=== PATIENT | female | born 1975 | race Two or more races ===

== ENCOUNTER 2018-06-01 02:27 | Observation (INO) | payer OTHER ==
[~2018-06-01] VITALS: Ht 154.9 cm; Wt 62.7 kg
[2018-06-01 02:53] LABS: BASOPHILS # (AUTO) 0.1 X10'3 (0-0.2); BASOPHILS % (AUTO) 0.7 % (0-1); EOSINOPHILS # (AUTO) 0.8 X10'3 (0-0.9); HEMATOCRIT 34.7 % (35.0-45.0); HEMOGLOBIN 11.2 g/dl (12.0-16.0); LYMPHOCYTES # (AUTO) 3.8 X10'3 (1.1-4.8); LYMPHOCYTES % (AUTO) 47.8 % (21-51); MEAN CORPUSCULAR HGB CONC 32.4 % (33.0-36.5); MEAN CORPUSCULAR VOLUME 74.1 FL (78-98); MONOCYTES # (AUTO) 0.6 X10'3 (0-0.9); NEUTROPHILS # (AUTO) 2.7 X10'3 (1.8-7.7); NEUTROPHILS % (AUTO) 34.5 % (42-75); PLATELET COUNT 278 X10'3 (140-440); RED BLOOD COUNT 4.68 X10'6 (4.20-5.60); WHITE BLOOD COUNT 7.9 X10'3 (4.5-11.0)
[2018-06-01 03:08] LABS: ALANINE AMINOTRANSFERASE 21 U/L (12-78); ALBUMIN 3.7 G/DL (3.4-5.0); ALKALINE PHOSPHATASE 126 IU/L (46-116); ANION GAP 13 (8-16); ASPARTATE AMINO TRANSFERASE 14 U/L (10-37); BILIRUBIN,TOTAL 0.2 MG/DL (0.1-1.0); BLOOD UREA NITROGEN 13 MG/DL (7-18); BUN/CREATININE RATIO 15.9 (6.6-38.0); CALCIUM 8.6 MG/DL (8.5-10.1); CHLORIDE 104 MMOL/L (99-107); CREATININE 0.82 MG/DL (0.40-0.90); GLUCOSE 98 MG/DL (70-104); POTASSIUM 3.2 MMOL/L (3.5-5.1); SODIUM 140 MMOL/L (135-145); TOTAL CARBON DIOXIDE 22.6 MMOL/L (24-32); TOTAL PROTEIN 7.4 G/DL (6.4-8.2); eGFR 76 ML/MIN
[2018-06-01 03:15] LABS: MAGNESIUM 1.9 MG/DL (1.5-2.4)
[2018-06-01 03:22] LABS: D-DIMER < 0.19 MG/L FEU (0-0.50)
[2018-06-01] MEDS ORDERED: potassium 10mEq/100ml NS w/LIDOcaine (10mg/bag) IV ONE (03:30)
[2018-06-01] MEDS ORDERED: LISI10TA4 PO (05:10)
[2018-06-01] MEDS ORDERED: magnesium hydroxide 30ml (MOM) UD suspension PO PRN (05:55)
[2018-06-01] MEDS ORDERED: ondansetron/PF 4mg/2ml inj IV PRN (05:55)
[2018-06-01] MEDS ORDERED: potassium Cl 40MEQ/NS 500ml 500 ML IV PRN ×2 (05:55)
[2018-06-01] MEDS ORDERED: morphine 4 MG/ML inj SYRINge IV PRN ×2 (05:55)
[2018-06-01] MEDS ORDERED: potassium Cl 20 mEq SR tablet PO PRN (05:55)
[2018-06-01] MEDS ORDERED: acetaminophen 325mg tablet PO PRN (05:55)
[2018-06-01] MEDS ORDERED: enalaprilat dihydrate 2.5mg/2ml vial IV PRN (05:55)
[2018-06-01] MEDS ORDERED: magnesium 4gm in 100ml NS 100 ML IV PRN (05:55)
[2018-06-01] MEDS ORDERED: magnesium 2GM in 50ml NS 50 ML IV PRN (05:55)
[2018-06-01] MEDS ORDERED: LORazepam 0.5 MG tablet PO PRN (06:05)
[2018-06-01] MEDS ORDERED: LORazepam 1 MG tablet PO STA (06:05)
--- NOTE | 2018-06-01 06:35 | NUR ---
CALLED PHARMACY TO HAVE ATIVAN ADJUSTED TO 0.5 MG TAB SO IT CAN BE PULLED FROM ED OMNICELL
[2018-06-01] MEDS ORDERED: LORazepam 0.5 MG tablet PO STA (06:38)
[2018-06-01 06:57] LABS: CHOL/HDL RATIO 3.3 (0.00-4.99); CHOLESTEROL 149 MG/DL (0-200); HDL CHOLESTEROL 45 MG/DL (35-60); LDL CHOLESTEROL 90 MG/DL (50-100); TRIGLYCERIDES 71 MG/DL (20-135)
--- NOTE | 2018-06-01 07:10 | NUR ---
Patient in room ED 6. I have received report from Sonia LEE and had the opportunity to ask questions and assume patient care.
[2018-06-01 07:20] VITALS: BP 143/83
--- NOTE | 2018-06-01 07:20 | NUR ---
Patient arrived to the unit accompanied by ED personnel. Patient ambulated to hospital bed safely, telemetry monitoring initiated, vital signs obtained, 2 RN skin check completed, patient's belongings placed in closet, and patient oriented to room and call light. No c/o of chest pain at this time, no signs of distress, no requests at this time. Will continue to monitor patient.
--- NOTE | 2018-06-01 07:34 | NUR ---
Page sent to Dr. Rincon: PAGER ID: [phone] MESSAGE: [phone] Teddy Mcintosh: Troponin now . Nohelia Poe FINAL ASSEMBLER [employer]AT notified. Thanks, Lily [phone]
[2018-06-01] MEDS: K and/or MAG REPLACEMENT MC SCH (08:00)
[2018-06-01] MEDS: enoxaparin 40mg/0.4ml syringe SQ SCH (09:13)
[2018-06-01] MEDS: potassium Cl 20 mEq SR tablet PO PRN ×3 (09:15→19:57)
[2018-06-01] MEDS: lisinopril 10 MG tablet PO SCH (09:15)
[2018-06-01 15:00] VITALS: BP 136/92
[2018-06-01] MEDS ORDERED: metoprolol tartrate 1mg/ml inj IV PRN (17:20)
[2018-06-01] MEDS ORDERED: nitroGLYCERIN 0.4mg SUBLingual tab SL PRN (17:20)
[2018-06-01] MEDS ORDERED: regadenoson 0.4mg/5ml syringe IV ONE (17:20)
[2018-06-01] MEDS ORDERED: aminophylline 250mg/10ml inj. IV PRN (17:20)
--- NOTE | 2018-06-01 18:16 | NUR ---
Problems reprioritized. Patient report given, questions answered & plan of care reviewed with Sepideh LEE. Transfered to [facility] at 1815 by wheelchair. Evangelista at bedside.
--- NOTE | 2018-06-01 18:23 | NUR ---
Orientee documentation: I have reviewed and agree with all interventions, assessments performed and documented by Betzaida LEE. Orientee Medication Administration: For this medication-pass time frame, all medication were reviewed, dispensed, administered and documented per hospital policy by Betzaida LEE.
[2018-06-01 19:00] VITALS: BP 130/90
[2018-06-01 23:00] VITALS: BP 131/82
[2018-06-02] VITALS (12 sets, daily range): BP systolic 126–163; BP diastolic 76–92
[2018-06-02 05:42] LABS: BASOPHILS # (AUTO) 0.1 X10'3 (0-0.2); BASOPHILS % (AUTO) 0.9 % (0-1); EOSINOPHILS # (AUTO) 0.6 X10'3 (0-0.9); HEMATOCRIT 33.1 % (35.0-45.0); HEMOGLOBIN 10.6 g/dl (12.0-16.0); LYMPHOCYTES # (AUTO) 2.9 X10'3 (1.1-4.8); LYMPHOCYTES % (AUTO) 45.3 % (21-51); MEAN CORPUSCULAR VOLUME 75.1 FL (78-98); MEAN PLATELET VOLUME 9.5 FL (7.4-10.4); MONOCYTES # (AUTO) 0.5 X10'3 (0-0.9); MONOCYTES % (AUTO) 7.9 % (2-12); NEUTROPHILS # (AUTO) 2.4 X10'3 (1.8-7.7); NEUTROPHILS % (AUTO) 36.9 % (42-75); PLATELET COUNT 230 X10'3 (140-440); WHITE BLOOD COUNT 6.4 X10'3 (4.5-11.0)
[2018-06-02 06:08] LABS: ALANINE AMINOTRANSFERASE 18 U/L (12-78); ALBUMIN 3.3 G/DL (3.4-5.0); ALKALINE PHOSPHATASE 107 IU/L (46-116); ANION GAP 8 (8-16); ASPARTATE AMINO TRANSFERASE 13 U/L (10-37); BILIRUBIN,TOTAL 0.2 MG/DL (0.1-1.0); BLOOD UREA NITROGEN 9 MG/DL (7-18); BUN/CREATININE RATIO 12.3 (6.6-38.0); CALCIUM 8.8 MG/DL (8.5-10.1); CHLORIDE 108 MMOL/L (99-107); CREATININE 0.73 MG/DL (0.40-0.90); GLUCOSE 82 MG/DL (70-104); MAGNESIUM 1.8 MG/DL (1.5-2.4); POTASSIUM 4.1 MMOL/L (3.5-5.1); SODIUM 142 MMOL/L (135-145); TOTAL CARBON DIOXIDE 25.6 MMOL/L (24-32); TOTAL PROTEIN 6.7 G/DL (6.4-8.2); eGFR 87 ML/MIN
--- NOTE | 2018-06-02 06:42 | NUR ---
Patient in room MED 314. I have received report from JESUS SPENCE and had the opportunity to ask questions and assume patient care.
[2018-06-02 07:03] LABS: CLARITY,URINE CLEAR (Clear); COLOR,URINE YELLOW (Yellow); GLUCOSE, URINE NEGATIVE (Neg); KETONES,URINE TRACE mg/dl (Neg); LEUKOCYTE ESTERASE ,URINE NEGATIVE (Neg); NITRITES, URINE NEGATIVE (Neg); OCCULT BLOOD,URINE NEGATIVE (Neg); PH,URINE 5.5 (4.8-8.0); PROTEIN,URINE NEGATIVE (Neg); UROBILINOGEN,URINE 0.2 E.U/dL (0.2-1.0)
[2018-06-02 07:09] LABS: UA COLLECTION TYPE NON-SPECIFIED
[2018-06-02] MEDS: K and/or MAG REPLACEMENT MC SCH (08:00)
[2018-06-02] MEDS: enoxaparin 40mg/0.4ml syringe SQ SCH (08:00)
--- NOTE | 2018-06-02 08:30 | NUR ---
PATIENT OFF FLOOR TO [facility]
[2018-06-02] MEDS ORDERED: regadenoson 0.4mg/5ml syringe IV ONE (09:00)
[2018-06-02] MEDS ORDERED: aminophylline inj. 10 ML IV ONE (09:00)
[2018-06-02 09:34] LABS: URINE HCG NEGATIVE (NEG)
--- NOTE | 2018-06-02 10:15 | NUR ---
PATIENT BACK FROM [facility], DENIES PAIN OR OTHER COMPLAINTS AT THIS TIME. WILL CONTINUE TO MONITOR.
[2018-06-02] MEDS: lisinopril 10 MG tablet PO SCH (10:28)
[2018-06-02 12:36] LABS: % IRON SATURATION 5 % (11-46); IRON 25 UG/DL (49-151); TOTAL IRON BINDING CAPACITY 482 UG/DL (259-388)
[2018-06-02 12:43] LABS: FERRITIN 4 NG/ML (8-252)
[2018-06-02] MEDS ORDERED: FERR325T28 PO (13:56)
[2018-06-02] MEDS ORDERED: PROP10TA10 PO (13:56)
[2018-06-02] MEDS ORDERED: ASCO500C15 PO (13:56)
--- NOTE | 2018-06-02 14:32 | NUR ---
PATIENT DISCHARGED HOME IN STABLE CONDITION. AND GRANDMA AT BEDSIDE. VSS, PIV REMOVED TIP INTACT, ALL BELONGINGS GIVEN TO PATIENT, DISCHARGE INSTRUCTIONS GIVEN TO PATIENT AND . ALL QUESTIONS AND CONCERNS ADDRESSED AT THIS TIME. PATIENT TRANSFERRED TO W/C, PCT BROUGHT PATIENT TO PRIVATE VEHICLE.
== END 2018-06-02 14:30 | disposition home or self-care (01) ==
LOC: ER 02:28 → ED HOLD 05:53 → PCU 3S 07:17 → MED 3N 19:06
PROVIDERS: ADMIT Family Medicine; ATTEND Family Medicine
DX: I16.0 Hypertensive urgency (principal); E87.6 Hypokalemia; R00.0 Tachycardia, unspecified; N92.0 Excessive and frequent menstruation with regular cycle; I10 Essential (primary) hypertension; I24.9 Acute ischemic heart disease, unspecified; F41.9 Anxiety disorder, unspecified; Z86.718 Personal history of other venous thrombosis and embolism
CPT/HCPCS: 36415; 71045; 78452; 80053; 80061; 81003; 81025; 82728; 83540; 83550; 83735; 83880; 84443; 84484; 85025; 85379; 93005; 93017; 93306; 96365; 96372; 96375; 99284; A9500; G0378; J0280; J2270; J3480; J1650

== ENCOUNTER 2018-07-13 12:20 | Outpatient (CLI) | payer OTHER ==
[~2018-07-13 12:20] MED LIST: ASCO500C15 PO; PROP10TA10 PO
[2018-07-13 13:17] LABS: CLARITY,URINE CLEAR (Clear); COLOR,URINE YELLOW (Yellow); GLUCOSE, URINE NEGATIVE (Neg); KETONES,URINE NEGATIVE (Neg); LEUKOCYTE ESTERASE ,URINE NEGATIVE (Neg); NITRITES, URINE NEGATIVE (Neg); OCCULT BLOOD,URINE SMALL (Neg); PH,URINE 5.5 (4.8-8.0); PROTEIN,URINE NEGATIVE (Neg); UROBILINOGEN,URINE 0.2 E.U/dL (0.2-1.0)
[2018-07-13 13:23] LABS: UA COLLECTION TYPE CLN CATCH MIDSTREAM
[2018-07-13 13:29] LABS: BASOPHILS # (AUTO) 0.1 X10'3 (0-0.2); EOSINOPHILS # (AUTO) 0.5 X10'3 (0-0.9); EOSINOPHILS % (AUTO) 6.8 % (0-6); HEMATOCRIT 37.5 % (35.0-45.0); HEMOGLOBIN 12.3 g/dl (12.0-16.0); LYMPHOCYTES # (AUTO) 2.2 X10'3 (1.1-4.8); LYMPHOCYTES % (AUTO) 30.5 % (21-51); MEAN CORPUSCULAR HEMOGLOBIN 26.7 PG (27.0-31.0); MEAN CORPUSCULAR HGB CONC 32.7 g/dL (33.0-36.5); MEAN CORPUSCULAR VOLUME 81.6 FL (78-98); MEAN PLATELET VOLUME 9.2 FL (7.4-10.4); MONOCYTES # (AUTO) 0.5 X10'3 (0-0.9); MONOCYTES % (AUTO) 7.4 % (2-12); NEUTROPHILS # (AUTO) 3.8 X10'3 (1.8-7.7); NEUTROPHILS % (AUTO) 54.3 % (42-75); PLATELET COUNT 227 X10'3 (140-440); RED CELL DISTRIBUTION WIDTH 26.5 % (11.5-14.5); WHITE BLOOD COUNT 7.1 X10'3 (4.5-11.0)
[2018-07-13 13:46] LABS: ALANINE AMINOTRANSFERASE 30 U/L (12-78); ALBUMIN 3.5 G/DL (3.4-5.0); ALKALINE PHOSPHATASE 113 IU/L (46-116); ANION GAP 5 (8-16); ASPARTATE AMINO TRANSFERASE 12 U/L (10-37); BILIRUBIN,TOTAL 0.2 MG/DL (0.1-1.0); BLOOD UREA NITROGEN 15 MG/DL (7-18); CALCIUM 8.8 MG/DL (8.5-10.1); CHLORIDE 108 MMOL/L (99-107); CHOL/HDL RATIO 3.9 (0.00-4.99); CHOLESTEROL 153 MG/DL (0-200); CREATININE 0.75 MG/DL (0.40-0.90); GLUCOSE 99 MG/DL (70-104); HDL CHOLESTEROL 39 MG/DL (35-60); LDL CHOLESTEROL 97 MG/DL (50-100); POTASSIUM 3.7 MMOL/L (3.5-5.1); SODIUM 141 MMOL/L (135-145); TOTAL CARBON DIOXIDE 27.8 MMOL/L (24-32); TOTAL PROTEIN 7.1 G/DL (6.4-8.2); TRIGLYCERIDES 153 MG/DL (20-135); eGFR 84 ML/MIN
[2018-07-13 14:00] LABS: SQUAMOUS EPITHELIAL CELL,UR MANY /LPF (FEW)
[2018-07-13 14:01] LABS: BACTERIA,URINE 1+ /HPF (Neg); RBC,URINE 0-2 /HPF (0-2)
[2018-07-13 14:02] LABS: WBC,URINE 0-4 /HPF (0-4)
[2018-07-13 14:03] LABS: ANISOCYTOSIS 3+; PLATELET ESTIMATE NORMAL
[2018-07-13 14:04] LABS: MICROCYTOSIS 2+
[2018-07-13 14:11] LABS: RHEUM FACTOR QUAL REFLEX TITER NEGATIVE (Neg)
[2018-07-13 15:17] LABS: URIC ACID CRYSTALS FEW /HPF (NEGATIVE)
== END 2018-07-13 23:59 | disposition home or self-care (01) ==
LOC: VAS 12:20
PROVIDERS: ATTEND Family Medicine
DX: Z00.00 Encounter for general adult medical examination without abnormal findings (principal); I10 Essential (primary) hypertension
CPT/HCPCS: 36415; 80053; 80061; 81001; 84439; 84443; 84550; 85025; 85651; 86038; 86430; 93975

== ENCOUNTER 2018-12-26 09:19 | Outpatient (CLI) | payer OTHER ==
[2018-12-26 09:54] LABS: CLARITY,URINE SLIGHTLY CLOUDY (Clear); COLOR,URINE YELLOW (Yellow); GLUCOSE, URINE NEGATIVE (Neg); KETONES,URINE NEGATIVE (Neg); LEUKOCYTE ESTERASE ,URINE TRACE (Neg); NITRITES, URINE NEGATIVE (Neg); OCCULT BLOOD,URINE NEGATIVE (Neg); PH,URINE 5.5 (4.8-8.0); PROTEIN,URINE NEGATIVE (Neg); UROBILINOGEN,URINE 0.2 E.U/dL (0.2-1.0)
[2018-12-26 09:57] LABS: UA COLLECTION TYPE CLN CATCH MIDSTREAM
[2018-12-26 09:58] LABS: BASOPHILS # (AUTO) 0.1 X10'3 (0-0.2); BASOPHILS % (AUTO) 0.9 % (0-1); EOSINOPHILS # (AUTO) 0.5 X10'3 (0-0.9); EOSINOPHILS % (AUTO) 7.6 % (0-6); HEMATOCRIT 32.8 % (35.0-45.0); HEMOGLOBIN 10.6 g/dl (12.0-16.0); LYMPHOCYTES # (AUTO) 2.4 X10'3 (1.1-4.8); LYMPHOCYTES % (AUTO) 36.2 % (21-51); MEAN CORPUSCULAR HEMOGLOBIN 24.8 PG (27.0-31.0); MEAN CORPUSCULAR HGB CONC 32.3 g/dL (33.0-36.5); MEAN CORPUSCULAR VOLUME 76.6 FL (78-98); MEAN PLATELET VOLUME 7.8 FL (7.4-10.4); MONOCYTES # (AUTO) 0.4 X10'3 (0-0.9); MONOCYTES % (AUTO) 6.4 % (2-12); NEUTROPHILS # (AUTO) 3.3 X10'3 (1.8-7.7); NEUTROPHILS % (AUTO) 48.9 % (42-75); PLATELET COUNT 301 X10'3 (140-440); RED BLOOD COUNT 4.28 X10'6 (4.20-5.60); RED CELL DISTRIBUTION WIDTH 16.9 % (11.5-14.5); WHITE BLOOD COUNT 6.7 X10'3 (4.5-11.0)
[2018-12-26 10:03] LABS: SQUAMOUS EPITHELIAL CELL,UR MANY /LPF (FEW)
[2018-12-26 10:04] LABS: BACTERIA,URINE FEW /HPF (Neg); RBC,URINE 0-2 /HPF (0-2); WBC,URINE 20-30 /HPF (0-4)
[2018-12-26 10:17] LABS: ALANINE AMINOTRANSFERASE 15 U/L (12-78); ALBUMIN 3.6 G/DL (3.4-5.0); ALBUMIN/GLOBULIN RATIO 0.9 (1.1-1.5); ALKALINE PHOSPHATASE 97 IU/L (46-116); ANION GAP 11 (8-16); ASPARTATE AMINO TRANSFERASE 11 U/L (10-37); BILIRUBIN,TOTAL 0.2 MG/DL (0.1-1.0); BLOOD UREA NITROGEN 16 MG/DL (7-18); BUN/CREATININE RATIO 22.5 (6.6-38.0); CALCIUM 8.2 MG/DL (8.5-10.1); CHLORIDE 108 MMOL/L (99-107); CHOL/HDL RATIO 3.9 (0.00-4.99); CHOLESTEROL 202 MG/DL (0-200); CREATININE 0.71 MG/DL (0.40-0.90); GLUCOSE 83 MG/DL (70-104); HDL CHOLESTEROL 52 MG/DL (35-60); LDL CHOLESTEROL 131 MG/DL (50-100); SODIUM 142 MMOL/L (135-145); TOTAL CARBON DIOXIDE 23.4 MMOL/L (24-32); TOTAL PROTEIN 7.7 G/DL (6.4-8.2); TRIGLYCERIDES 97 MG/DL (20-135); eGFR 89 ML/MIN
== END 2018-12-26 23:59 | disposition home or self-care (01) ==
LOC: LAB 09:19
PROVIDERS: ATTEND Family Medicine
DX: Z00.00 Encounter for general adult medical examination without abnormal findings (principal); I10 Essential (primary) hypertension
CPT/HCPCS: 36415; 80053; 80061; 81001; 82607; 82746; 84439; 84443; 85025

== ENCOUNTER 2019-01-30 21:19 | Emergency (ER) | payer OTHER ==
[~2019-01-30] VITALS: Ht 154.9 cm; Wt 66.0 kg
[2019-01-30 21:57] LABS: BASOPHILS # (AUTO) 0.1 X10'3 (0-0.2); BASOPHILS % (AUTO) 1.3 % (0-1); EOSINOPHILS # (AUTO) 0.5 X10'3 (0-0.9); EOSINOPHILS % (AUTO) 7.4 % (0-6); HEMATOCRIT 39.3 % (35.0-45.0); LYMPHOCYTES # (AUTO) 2.5 X10'3 (1.1-4.8); LYMPHOCYTES % (AUTO) 34.6 % (21-51); MEAN CORPUSCULAR HEMOGLOBIN 28.1 PG (27.0-31.0); MEAN CORPUSCULAR HGB CONC 33.2 g/dL (33.0-36.5); MEAN CORPUSCULAR VOLUME 84.4 FL (78-98); MEAN PLATELET VOLUME 8.2 FL (7.4-10.4); MONOCYTES # (AUTO) 0.5 X10'3 (0-0.9); MONOCYTES % (AUTO) 7.3 % (2-12); NEUTROPHILS # (AUTO) 3.6 X10'3 (1.8-7.7); NEUTROPHILS % (AUTO) 49.4 % (42-75); PLATELET COUNT 244 X10'3 (140-440); RED BLOOD COUNT 4.65 X10'6 (4.20-5.60); RED CELL DISTRIBUTION WIDTH 24.7 % (11.5-14.5); WHITE BLOOD COUNT 7.3 X10'3 (4.5-11.0)
[2019-01-30 22:09] LABS: PARTIAL THROMBOPLASTIN TIME 28 SECONDS (22-32)
[2019-01-30 22:13] LABS: ALANINE AMINOTRANSFERASE 24 U/L (12-78); ALBUMIN 3.7 G/DL (3.4-5.0); ALBUMIN/GLOBULIN RATIO 0.9 (1.1-1.5); ALKALINE PHOSPHATASE 82 IU/L (46-116); ANION GAP 10 (8-16); ASPARTATE AMINO TRANSFERASE 10 U/L (10-37); BILIRUBIN,TOTAL 0.2 MG/DL (0.1-1.0); BLOOD UREA NITROGEN 17 MG/DL (7-18); BUN/CREATININE RATIO 19.5 (6.6-38.0); CALCIUM 8.8 MG/DL (8.5-10.1); CHLORIDE 106 MMOL/L (99-107); CREATININE 0.87 MG/DL (0.40-0.90); GLUCOSE 107 MG/DL (70-104); POTASSIUM 3.8 MMOL/L (3.5-5.1); SODIUM 141 MMOL/L (135-145); TOTAL CARBON DIOXIDE 25.1 MMOL/L (24-32); TOTAL PROTEIN 7.6 G/DL (6.4-8.2); eGFR 71 ML/MIN
[2019-01-30] MEDS ORDERED: LIDOcaine Viscous 15ml cup MM STA (22:13)
[2019-01-30] MEDS ORDERED: aspirin 81mg tab.chew PO ONE (22:15)
[2019-01-30] MEDS ORDERED: famotidine 20mg tablet PO ONE (22:15)
[2019-01-30 22:27] LABS: ANISOCYTOSIS 3+; PLATELET ESTIMATE NORMAL
[2019-01-30 23:23] VITALS: BP 129/86
== END 2019-01-30 23:20 | disposition home or self-care (01) ==
LOC: ER 21:20
DX: R10.12 Left upper quadrant pain (principal); I10 Essential (primary) hypertension
CPT/HCPCS: 36415; 71045; 80053; 84484; 85025; 85610; 85730; 93005; 99284

== ENCOUNTER 2019-02-03 11:56 | Outpatient (CLI) | payer OTHER | END 2019-02-03 23:59 | disposition home or self-care (01) | LOC: LAB 11:56 | PROVIDERS: ATTEND Family Medicine | DX: I10 Essential (primary) hypertension (principal) | CPT/HCPCS: 36415; 83835 ==

== ENCOUNTER 2019-02-10 13:31 | Outpatient (CLI) | payer OTHER ==
[2019-02-11] MEDS ORDERED: SUCR1TAB34 PO (04:01)
[2019-02-11] MEDS ORDERED: ONDA4TAB6 PO (04:01)
[2019-02-11] MEDS ORDERED: FAMO20TA44 PO (04:01)
[2019-02-11] MEDS ORDERED: OMEP20CA11 PO (04:01)
== END 2019-02-10 23:59 | disposition home or self-care (01) ==
LOC: RAD 13:31
PROVIDERS: ATTEND Family Medicine
DX: R10.11 Right upper quadrant pain (principal); I10 Essential (primary) hypertension
CPT/HCPCS: 76700

== ENCOUNTER 2019-02-11 02:41 | Emergency (ER) | payer OTHER ==
[~2019-02-11] VITALS: Ht 154.9 cm; Wt 65.0 kg
[2019-02-11] MEDS ORDERED: mag hydrox/Alum hydrox/simeth 30ml oral suspension PO ONE (02:50)
[2019-02-11] MEDS ORDERED: LIDOcaine Viscous 15ml cup MM PRN (02:50)
[2019-02-11] MEDS ORDERED: LORazepam 1 MG tablet PO ONE (02:50)
[2019-02-11] MEDS ORDERED: sucralfate 1gm/10ml UD suspension PO ONE (02:50)
[2019-02-11] MEDS ORDERED: sucralfate 1gm/10ml UD suspension PO SCH (02:50)
[2019-02-11] MEDS ORDERED: famotidine/PF 10 mg/ml inj IV ONE (03:05)
[2019-02-11] MEDS ORDERED: normal saline 1000ML IV soln IVB ONE (03:05)
[2019-02-11] MEDS ORDERED: pantoprazole 40 MG vial IV ONE (03:05)
[2019-02-11] MEDS ORDERED: ondansetron/PF 4mg/2ml inj IV ONE (03:05)
[2019-02-11 04:00] LABS: BASOPHILS # (AUTO) 0.1 X10'3 (0-0.2); BASOPHILS % (AUTO) 1.1 % (0-1); EOSINOPHILS # (AUTO) 0.4 X10'3 (0-0.9); EOSINOPHILS % (AUTO) 6.5 % (0-6); HEMATOCRIT 39.1 % (35.0-45.0); HEMOGLOBIN 13.1 g/dl (12.0-16.0); LYMPHOCYTES # (AUTO) 2.5 X10'3 (1.1-4.8); LYMPHOCYTES % (AUTO) 37.5 % (21-51); MEAN CORPUSCULAR HEMOGLOBIN 28.8 PG (27.0-31.0); MEAN CORPUSCULAR HGB CONC 33.5 g/dL (33.0-36.5); MEAN CORPUSCULAR VOLUME 85.8 FL (78-98); MEAN PLATELET VOLUME 8.5 FL (7.4-10.4); MONOCYTES # (AUTO) 0.5 X10'3 (0-0.9); MONOCYTES % (AUTO) 7.3 % (2-12); NEUTROPHILS # (AUTO) 3.2 X10'3 (1.8-7.7); NEUTROPHILS % (AUTO) 47.6 % (42-75); PLATELET COUNT 260 X10'3 (140-440); RED BLOOD COUNT 4.56 X10'6 (4.20-5.60); WHITE BLOOD COUNT 6.7 X10'3 (4.5-11.0)
[2019-02-11] MEDS ORDERED: ONDA4TAB6 PO (04:01)
[2019-02-11] MEDS ORDERED: SUCR1TAB34 PO (04:01)
[2019-02-11] MEDS ORDERED: FAMO20TA44 PO (04:01)
[2019-02-11] MEDS ORDERED: OMEP20CA11 PO (04:01)
--- NOTE | 2019-02-11 04:04 | NUR ---
PT DENIES CP.
[2019-02-11 04:05] LABS: ALANINE AMINOTRANSFERASE 24 U/L (12-78); ALBUMIN 3.8 G/DL (3.4-5.0); ALBUMIN/GLOBULIN RATIO 0.9 (1.1-1.5); ALKALINE PHOSPHATASE 84 IU/L (46-116); ANION GAP 8 (8-16); ASPARTATE AMINO TRANSFERASE 13 U/L (10-37); BILIRUBIN,TOTAL 0.3 MG/DL (0.1-1.0); BLOOD UREA NITROGEN 13 MG/DL (7-18); BUN/CREATININE RATIO 17.6 (6.6-38.0); CALCIUM 9.2 MG/DL (8.5-10.1); CHLORIDE 106 MMOL/L (99-107); CREATININE 0.74 MG/DL (0.40-0.90); GLUCOSE 92 MG/DL (70-104); LIPASE 127 U/L (73-393); POTASSIUM 3.4 MMOL/L (3.5-5.1); SODIUM 141 MMOL/L (135-145); TOTAL CARBON DIOXIDE 27.4 MMOL/L (24-32); TOTAL PROTEIN 7.9 G/DL (6.4-8.2); eGFR 85 ML/MIN
--- NOTE | 2019-02-11 04:28 | NUR ---
PT RESTING COMFORTABLY, DENIES ANY PAIN.
[2019-02-11 04:45] VITALS: BP 126/79
[2019-02-11 07:38] LABS: ANISOCYTOSIS 3+; PLATELET ESTIMATE NORMAL; STOMATOCYTES FEW
== END 2019-02-11 04:43 | disposition home or self-care (01) ==
LOC: ER 02:42
DX: K21.9 Gastro-esophageal reflux disease without esophagitis (principal); I10 Essential (primary) hypertension; Z86.2 Personal history of diseases of the blood and blood-forming organs and certain disorders involving the immune mechanism; Z79.899 Other long term (current) drug therapy
CPT/HCPCS: 36415; 74176; 80053; 83605; 83690; 84484; 85025; 93005; 96374; 96375; 99284; C9113; J2405; J3490; J7030

== ENCOUNTER 2019-02-14 10:37 | Outpatient (CLI) | payer OTHER ==
[~2019-02-14 10:37] MED LIST changes: +FAMO20TA44 PO; +OMEP20CA11 PO; +ONDA4TAB6 PO; +SUCR1TAB34 PO
[2019-02-14] MEDS ORDERED: NORMAL SALINE IV ONE (12:05)
[2019-02-14] MEDS ORDERED: SINCALIDE IV ONE (12:05)
[2019-02-15] MEDS ORDERED: CEFOXITIN IV ONE ×2 (10:55→11:50)
[2019-02-15] MEDS ORDERED: NS IV ONE ×2 (10:55→11:50)
[2019-02-15] MEDS ORDERED: CARV6.253 PO (12:49)
[2019-02-15] MEDS ORDERED: PANT40TA4 PO (12:49)
[2019-02-15] MEDS ORDERED: LISI-604 PO (12:49)
[2019-02-15] MEDS ORDERED: CHOL500049 PO (12:49)
== END 2019-02-14 23:59 | disposition home or self-care (01) ==
LOC: RAD 10:37
PROVIDERS: ATTEND Family Medicine
DX: K82.8 Other specified diseases of gallbladder (principal)
CPT/HCPCS: 78227; A9537; J2805; J0694

== ENCOUNTER 2019-02-15 11:19 | Day surgery (SDC) | payer OTHER ==
[~2019-02-15] VITALS: Ht 154.9 cm; Wt 64.4 kg
[2019-02-15] VITALS (13 sets, daily range): BP systolic 121–151; BP diastolic 74–95
[2019-02-15] MEDS ORDERED: famotidine 20mg tablet PO ONE (11:52)
[2019-02-15] MEDS ORDERED: ringers solution, lacted 1,000 ML IV SCH ×2 (11:53→13:08)
[2019-02-15] MEDS ORDERED: CEFOXITIN IV ONE (11:55)
[2019-02-15] MEDS ORDERED: NS IV ONE (11:55)
[2019-02-15] MEDS ORDERED: PANT40TA4 PO (12:49)
[2019-02-15] MEDS ORDERED: LISI-604 PO (12:49)
[2019-02-15] MEDS ORDERED: CARV6.253 PO (12:49)
[2019-02-15] MEDS ORDERED: CHOL500049 PO (12:49)
[2019-02-15 12:56] LABS: BASOPHILS # (AUTO) 0.1 X10'3 (0-0.2); BASOPHILS % (AUTO) 0.9 % (0-1); EOSINOPHILS # (AUTO) 0.3 X10'3 (0-0.9); EOSINOPHILS % (AUTO) 5.1 % (0-6); LYMPHOCYTES # (AUTO) 1.8 X10'3 (1.1-4.8); LYMPHOCYTES % (AUTO) 28.1 % (21-51); MEAN CORPUSCULAR HEMOGLOBIN 28.7 PG (27.0-31.0); MEAN CORPUSCULAR HGB CONC 33.3 g/dL (33.0-36.5); MEAN PLATELET VOLUME 8.2 FL (7.4-10.4); MONOCYTES # (AUTO) 0.4 X10'3 (0-0.9); MONOCYTES % (AUTO) 6.4 % (2-12); NEUTROPHILS # (AUTO) 3.8 X10'3 (1.8-7.7); NEUTROPHILS % (AUTO) 59.5 % (42-75); PRE OP HEMATOCRIT 41.6 % (35.0-45.0); PRE OP HEMOGLOBIN 13.9 g/dL (12.0-16.0); PRE OP PLATELET COUNT 238 X10'3 (140-440); RED BLOOD COUNT 4.84 X10'6 (4.20-5.60); RED CELL DISTRIBUTION WIDTH 22.4 % (11.5-14.5)
[2019-02-15] MEDS ORDERED: ondansetron/PF 4mg/2ml inj IV PRN (13:10)
[2019-02-15] MEDS ORDERED: morphine 4 MG/ML inj SYRINge IV PRN ×2 (13:10)
[2019-02-15] MEDS ORDERED: meperidine/PF 25mg/ml syringe IV PRN ×2 (13:10)
[2019-02-15] MEDS ORDERED: proCHLORperazine 10 MG/2 ml inj IV PRN (13:10)
[2019-02-15 13:15] LABS: ALBUMIN/GLOBULIN RATIO 0.9 (1.1-1.5); ALKALINE PHOSPHATASE 92 IU/L (46-116); BLOOD UREA NITROGEN 13 MG/DL (7-18); BUN/CREATININE RATIO 16.3 (6.6-38.0); CALCIUM 9.2 MG/DL (8.5-10.1); CHLORIDE 105 MMOL/L (99-107); PRE OP ALT 30 U/L (30-65); PRE OP ANION GAP 8 (8-16); PRE OP AST 13 U/L (10-37); PRE OP BILIRUB, TOTAL 0.4 MG/DL (0.0-1.0); PRE OP GLUCOSE 74 MG/DL (70-104); PRE OP POTASSIUM 4.1 MMOL/L (3.4-5.1); PRE OP SODIUM 142 MMOL/L (135-145); TOTAL CARBON DIOXIDE 29.3 MMOL/L (24-32); TOTAL PROTEIN 8.3 G/DL (6.4-8.2); eGFR 78 ML/MIN
[2019-02-15 13:34] LABS: ANISOCYTOSIS 3+; LARGE PLATELETS FEW; PLATELET ESTIMATE NORMAL
[2019-02-15 13:48] LABS: BETA HCG,QUANTITATIVE < 1.0 mIU/ml
[2019-02-15] MEDS ORDERED: BUPIVAcaine/PF 2.5 mg/ml (0.25%) 30ml vial ONE (14:04)
[2019-02-15] MEDS ORDERED: ceFAZolin 1000mg inj ONE (14:04)
[2019-02-15] MEDS ORDERED: rocuronium 10mg/ml inj IV ONE (14:05)
[2019-02-15] MEDS ORDERED: glycopyrrolate 0.2mg/ml inj ONE (14:05)
[2019-02-15] MEDS ORDERED: dexamethasone sod phosphate 10mg/ml inj ONE (14:05)
[2019-02-15] MEDS ORDERED: neostigmine methylsulfate 1 MG/ML 10ml vial ONE (14:05)
[2019-02-15] MEDS ORDERED: sevoflurane 250ml liquid IH ONE (14:05)
[2019-02-15] MEDS ORDERED: ketorolac trometh. 30mg/ml inj. ONE (14:05)
[2019-02-15] MEDS ORDERED: fentaNYL/PF 50MCG/1 ML 2ML syringe ONE (14:12)
[2019-02-15] MEDS ORDERED: midazolam 2 mg/2 ml injection ONE (14:12)
[2019-02-15] MEDS ORDERED: ondansetron/PF 4mg/2ml inj ONE (14:22)
[2019-02-15] MEDS ORDERED: LIDOcaine 2% (20mg/ml) 5ml vial ONE (14:27)
[2019-02-15] MEDS ORDERED: acetaminophen 1,000mg/100ml IV 100 ML IV ONE (14:27)
[2019-02-15] MEDS ORDERED: propofol inj 20 ML IV ONE (14:27)
[2019-02-15] MEDS ORDERED: meperidine/PF 50mg/ml syringe ONE (15:19)
--- NOTE | 2019-02-15 15:25 | NUR ---
Received from OR via BED , accompanied by Anesthesiologist DR CHOU and report given by Anesthesiolgist. PATIENT WAKING UP, DENIES PAIN, V/S WNL, NEUROVASCULAR CHECKS INTACT, 20G PIV LUE, SCD ON, 3 BANDAIDS TO LAP SIGHTS OF ABDOMEN CDI.
[2019-02-15] MEDS: meperidine/PF 25mg/ml syringe IV PRN ×2 (15:31→16:06)
[2019-02-15] MEDS ORDERED: HYDROcodone/acetaminophen 5mg/325mg tablet PO ONE (16:45)
[2019-02-15] MEDS ORDERED: scopolamine 1.5mg patch.TD72 TD ONE (16:55)
--- NOTE | 2019-02-15 17:05 | NUR ---
PATIENT SLEEPY BUT ORIENTED X4, STATES PAIN CONTROLLED NOW, V/S WNL, NEUROVASCULAR CHECKS INTACT, 20G PIV LUE D/C, SCD OFF, 3 BANDAIDS TO LAP SIGHTS OF ABDOMEN CDI. SCOPE PATCH GIVEN FOR C/O NAUSEA THAT COMES AND GOES. . I HAVE REVIEWED D/C INSTRUCTIONS WITH PATIENT AND FAMILY HAVE VERBALIZED UNDERSTANDING.I SPOKE WITH DR DUPREE WHO STATED HE DID CALL A SCRIPT FOR NORCO INTO PATIENTS PHARMACY AND THAT WAS RELAYED TO PATIENT AND FAMILY. PATIENT WAS D/C HOME WITH ALL BELONGINGS AND FAMILY GAVE TRANSPORT HOME.
== END 2019-02-15 17:05 | disposition home or self-care (01) ==
LOC: PAS 11:19
PROVIDERS: ATTEND Surgery
DX: K82.8 Other specified diseases of gallbladder (principal); K81.1 Chronic cholecystitis; I10 Essential (primary) hypertension; Z88.1 Allergy status to other antibiotic agents; Z79.899 Other long term (current) drug therapy; R97.8 Other abnormal tumor markers
CPT/HCPCS: 36415; 47562; 80053; 84702; 85025; J0131; J0690; J0694; J0780; J1100; J1885; J2001; J2175; J2250; J2270; J2405; J2704; J2710; J3010; J3490; J7120; A4215; A4618; A7000

== ENCOUNTER 2019-02-21 00:24 | Emergency (ER) | payer OTHER ==
[~2019-02-21] VITALS: Ht 154.9 cm; Wt 64.2 kg
[~2019-02-21 00:24] MED LIST changes: -ASCO500C15 PO; +CARV6.253 PO; +CHOL500049 PO; -FAMO20TA44 PO; +LISI-604 PO; -OMEP20CA11 PO; -ONDA4TAB6 PO; +PANT40TA4 PO; -PROP10TA10 PO; -SUCR1TAB34 PO
--- NOTE | 2019-02-21 00:51 | NUR ---
AT BEDSIDE - PT GIVEN WARM BLANKET. AWAITING MD AT THIS TIME.
[2019-02-21] MEDS ORDERED: iohexol 300mg/ml 100ml inj. ONE (01:08)
[2019-02-21 01:15] LABS: BASOPHILS % (AUTO) 0.5 % (0-1); EOSINOPHILS # (AUTO) 0.6 X10'3 (0-0.9); HEMATOCRIT 40.2 % (35.0-45.0); HEMOGLOBIN 13.6 g/dl (12.0-16.0); LYMPHOCYTES # (AUTO) 2.6 X10'3 (1.1-4.8); LYMPHOCYTES % (AUTO) 30.8 % (21-51); MEAN CORPUSCULAR HEMOGLOBIN 28.7 PG (27.0-31.0); MEAN CORPUSCULAR HGB CONC 33.7 g/dL (33.0-36.5); MEAN PLATELET VOLUME 8.6 FL (7.4-10.4); MONOCYTES # (AUTO) 0.6 X10'3 (0-0.9); MONOCYTES % (AUTO) 6.8 % (2-12); NEUTROPHILS # (AUTO) 4.6 X10'3 (1.8-7.7); NEUTROPHILS % (AUTO) 54.9 % (42-75); PLATELET COUNT 245 X10'3 (140-440); RED BLOOD COUNT 4.73 X10'6 (4.20-5.60); RED CELL DISTRIBUTION WIDTH 21.9 % (11.5-14.5); WHITE BLOOD COUNT 8.4 X10'3 (4.5-11.0)
[2019-02-21 01:23] LABS: ALANINE AMINOTRANSFERASE 40 U/L (12-78); ALBUMIN 3.6 G/DL (3.4-5.0); ALBUMIN/GLOBULIN RATIO 0.9 (1.1-1.5); ALKALINE PHOSPHATASE 84 IU/L (46-116); ANION GAP 6 (8-16); ASPARTATE AMINO TRANSFERASE 28 U/L (10-37); BILIRUBIN,TOTAL 0.3 MG/DL (0.1-1.0); BLOOD UREA NITROGEN 11 MG/DL (7-18); BUN/CREATININE RATIO 13.1 (6.6-38.0); CALCIUM 9.3 MG/DL (8.5-10.1); CHLORIDE 103 MMOL/L (99-107); CREATININE 0.84 MG/DL (0.40-0.90); GLUCOSE 97 MG/DL (70-104); LIPASE 143 U/L (73-393); POTASSIUM 3.7 MMOL/L (3.5-5.1); SODIUM 138 MMOL/L (135-145); TOTAL CARBON DIOXIDE 28.7 MMOL/L (24-32); TOTAL PROTEIN 7.8 G/DL (6.4-8.2); eGFR 74 ML/MIN
--- NOTE | 2019-02-21 01:57 | NUR ---
PT AMBULATORY TO RESTROOM TO PROVIDE URINE SAMPLE.
[2019-02-21 02:16] LABS: CLARITY,URINE CLEAR (Clear); COLOR,URINE YELLOW (Yellow); GLUCOSE, URINE NEGATIVE (Neg); KETONES,URINE NEGATIVE (Neg); LEUKOCYTE ESTERASE ,URINE NEGATIVE (Neg); NITRITES, URINE NEGATIVE (Neg); OCCULT BLOOD,URINE NEGATIVE (Neg); PROTEIN,URINE NEGATIVE (Neg); UA COLLECTION TYPE CLN CATCH MIDSTREAM; UROBILINOGEN,URINE 0.2 E.U/dL (0.2-1.0)
[2019-02-21 02:40] VITALS: BP 149/96
== END 2019-02-21 02:42 | disposition home or self-care (01) ==
LOC: ER 00:25
DX: R10.10 Upper abdominal pain, unspecified (principal); I10 Essential (primary) hypertension; Z90.49 Acquired absence of other specified parts of digestive tract; Z86.2 Personal history of diseases of the blood and blood-forming organs and certain disorders involving the immune mechanism; Z79.899 Other long term (current) drug therapy
CPT/HCPCS: 36415; 74177; 80053; 81003; 83605; 83690; 84145; 84484; 85025; 99284; Q9967

== ENCOUNTER 2019-03-10 11:03 | Outpatient (CLI) | payer OTHER | END 2019-03-10 23:59 | disposition home or self-care (01) | LOC: RAD 11:03 | PROVIDERS: ATTEND Family Medicine | DX: M54.2 Cervicalgia (principal); M54.5 Low back pain; M54.6 Pain in thoracic spine; I10 Essential (primary) hypertension | CPT/HCPCS: 72040; 72070; 72100 ==

== ENCOUNTER 2019-06-03 10:25 | Emergency (ER) | payer OTHER ==
[~2019-06-03] VITALS: Ht 154.9 cm; Wt 66.0 kg
--- NOTE | 2019-06-03 11:40 | NUR ---
Escorted pt to OF1 for pelvic exam
[2019-06-03 11:43] LABS: BASOPHILS # (AUTO) 0.1 X10'3 (0-0.2); BASOPHILS % (AUTO) 1.1 % (0-1); EOSINOPHILS # (AUTO) 0.4 X10'3 (0-0.9); EOSINOPHILS % (AUTO) 7.3 % (0-6); HEMATOCRIT 31.2 % (35.0-45.0); HEMOGLOBIN 10.4 g/dl (12.0-16.0); LYMPHOCYTES # (AUTO) 1.7 X10'3 (1.1-4.8); LYMPHOCYTES % (AUTO) 28.8 % (21-51); MEAN CORPUSCULAR HEMOGLOBIN 26.7 PG (27.0-31.0); MEAN CORPUSCULAR HGB CONC 33.5 g/dL (33.0-36.5); MEAN CORPUSCULAR VOLUME 79.8 FL (78-98); MONOCYTES # (AUTO) 0.4 X10'3 (0-0.9); MONOCYTES % (AUTO) 7.3 % (2-12); NEUTROPHILS # (AUTO) 3.2 X10'3 (1.8-7.7); NEUTROPHILS % (AUTO) 55.5 % (42-75); PLATELET COUNT 300 X10'3 (140-440); RED BLOOD COUNT 3.91 X10'6 (4.20-5.60); RED CELL DISTRIBUTION WIDTH 15.4 % (11.5-14.5); WHITE BLOOD COUNT 5.8 X10'3 (4.5-11.0)
--- NOTE | 2019-06-03 11:55 | NUR ---
Bedside chaparone with Dr. Carballo for pelvic exam. Then escorted pt to ED bed 13.
[2019-06-03 12:10] LABS: HCG SERUM QL NEGATIVE
[2019-06-03 12:23] VITALS: BP 128/87
== END 2019-06-03 12:24 | disposition home or self-care (01) ==
LOC: ER 10:26
DX: N92.0 Excessive and frequent menstruation with regular cycle (principal); I10 Essential (primary) hypertension; Z86.2 Personal history of diseases of the blood and blood-forming organs and certain disorders involving the immune mechanism; Z90.49 Acquired absence of other specified parts of digestive tract; Z79.899 Other long term (current) drug therapy
CPT/HCPCS: 36415; 84703; 85025; 99283

== ENCOUNTER 2019-07-07 10:14 | Outpatient (CLI) | payer OTHER ==
[2019-07-07 10:55] LABS: BASOPHILS # (AUTO) 0.1 X10'3 (0-0.2); EOSINOPHILS # (AUTO) 0.5 X10'3 (0-0.9); EOSINOPHILS % (AUTO) 8.7 % (0-6); HEMATOCRIT 35.7 % (35.0-45.0); HEMOGLOBIN 11.7 g/dl (12.0-16.0); LYMPHOCYTES % (AUTO) 32.7 % (21-51); MEAN CORPUSCULAR HEMOGLOBIN 27.3 PG (27.0-31.0); MEAN CORPUSCULAR HGB CONC 32.9 g/dL (33.0-36.5); MONOCYTES # (AUTO) 0.4 X10'3 (0-0.9); MONOCYTES % (AUTO) 6.6 % (2-12); NEUTROPHILS # (AUTO) 3.1 X10'3 (1.8-7.7); PLATELET COUNT 301 X10'3 (140-440); RED BLOOD COUNT 4.29 X10'6 (4.20-5.60); RED CELL DISTRIBUTION WIDTH 20.6 % (11.5-14.5)
[2019-07-07 11:22] LABS: ALANINE AMINOTRANSFERASE 17 U/L (12-78); ALBUMIN 3.6 G/DL (3.4-5.0); ALBUMIN/GLOBULIN RATIO 0.9 (1.1-1.5); ALKALINE PHOSPHATASE 95 IU/L (46-116); ANION GAP 7 (8-16); ASPARTATE AMINO TRANSFERASE 18 U/L (10-37); BILIRUBIN,TOTAL 0.2 MG/DL (0.1-1.0); BLOOD UREA NITROGEN 11 MG/DL (7-18); BUN/CREATININE RATIO 15.9 (6.6-38.0); CALCIUM 8.6 MG/DL (8.5-10.1); CHLORIDE 107 MMOL/L (99-107); CHOL/HDL RATIO 3.7 (0.00-4.99); CHOLESTEROL 198 MG/DL (0-200); CREATININE 0.69 MG/DL (0.40-0.90); FERRITIN 6 NG/ML (8-252); GLUCOSE 84 MG/DL (70-104); HDL CHOLESTEROL 53 MG/DL (35-60); LDL CHOLESTEROL 120 MG/DL (50-100); POTASSIUM 3.9 MMOL/L (3.5-5.1); SODIUM 142 MMOL/L (135-145); TOTAL PROTEIN 7.5 G/DL (6.4-8.2); TRIGLYCERIDES 183 MG/DL (20-135); eGFR > 90 ML/MIN
[2019-07-07 11:48] LABS: ANISOCYTOSIS 2+; PLATELET ESTIMATE NORMAL; POLYCHROMASIA FEW
[2019-07-07 11:49] LABS: % IRON SATURATION 6 % (11-46); IRON 25 UG/DL (49-151); TOTAL IRON BINDING CAPACITY 409 UG/DL (259-388)
== END 2019-07-07 23:59 | disposition home or self-care (01) ==
LOC: LAB 10:14
PROVIDERS: ATTEND Family Medicine
DX: Z00.00 Encounter for general adult medical examination without abnormal findings (principal); D50.9 Iron deficiency anemia, unspecified; E55.9 Vitamin D deficiency, unspecified; E78.2 Mixed hyperlipidemia; D64.9 Anemia, unspecified
CPT/HCPCS: 36415; 80053; 80061; 82728; 83001; 83540; 83550; 84439; 84443; 85025

== ENCOUNTER 2019-07-26 01:34 | Emergency (ER) | payer OTHER ==
[~2019-07-26] VITALS: Ht 154.9 cm; Wt 65.0 kg
[2019-07-26 01:58] LABS: BASOPHILS # (AUTO) 0.1 X10'3 (0-0.2); BASOPHILS % (AUTO) 0.9 % (0-1); EOSINOPHILS # (AUTO) 0.6 X10'3 (0-0.9); EOSINOPHILS % (AUTO) 8.5 % (0-6); HEMATOCRIT 38.4 % (35.0-45.0); HEMOGLOBIN 12.9 g/dl (12.0-16.0); LYMPHOCYTES % (AUTO) 42.1 % (21-51); MEAN CORPUSCULAR HEMOGLOBIN 27.9 PG (27.0-31.0); MEAN CORPUSCULAR HGB CONC 33.6 g/dL (33.0-36.5); MEAN CORPUSCULAR VOLUME 83.2 FL (78-98); MEAN PLATELET VOLUME 8.4 FL (7.4-10.4); MONOCYTES # (AUTO) 0.5 X10'3 (0-0.9); MONOCYTES % (AUTO) 7.7 % (2-12); NEUTROPHILS # (AUTO) 2.9 X10'3 (1.8-7.7); NEUTROPHILS % (AUTO) 40.8 % (42-75); PLATELET COUNT 234 X10'3 (140-440); RED BLOOD COUNT 4.61 X10'6 (4.20-5.60); RED CELL DISTRIBUTION WIDTH 20.6 % (11.5-14.5)
[2019-07-26] MEDS ORDERED: LORazepam 2 mg/ml vial IV ONE (02:05)
[2019-07-26 02:09] LABS: ALANINE AMINOTRANSFERASE 34 U/L (12-78); ALBUMIN 3.8 G/DL (3.4-5.0); ALKALINE PHOSPHATASE 95 IU/L (46-116); ANION GAP 8 (8-16); ASPARTATE AMINO TRANSFERASE 23 U/L (10-37); BILIRUBIN,TOTAL 0.2 MG/DL (0.1-1.0); BLOOD UREA NITROGEN 18 MG/DL (7-18); BUN/CREATININE RATIO 21.7 (6.6-38.0); CHLORIDE 106 MMOL/L (99-107); CREATININE 0.83 MG/DL (0.40-0.90); GLUCOSE 97 MG/DL (70-104); POTASSIUM 3.8 MMOL/L (3.5-5.1); SODIUM 141 MMOL/L (135-145); TOTAL CARBON DIOXIDE 27.3 MMOL/L (24-32); TOTAL PROTEIN 7.5 G/DL (6.4-8.2); eGFR 74 ML/MIN
[2019-07-26 02:13] LABS: TROPONIN I < 0.04 NG/ML (0.0-0.05)
[2019-07-26 03:17] VITALS: BP 130/85
[2019-07-26 03:18] LABS: PLATELET ESTIMATE NORMAL
[2019-07-26 03:19] LABS: ANISOCYTOSIS 2+
[2019-07-26 03:20] LABS: POLYCHROMASIA 1+
== END 2019-07-26 03:22 | disposition home or self-care (01) ==
LOC: ER 01:34
DX: I10 Essential (primary) hypertension (principal); D64.9 Anemia, unspecified; Z90.49 Acquired absence of other specified parts of digestive tract; Z88.1 Allergy status to other antibiotic agents; Z88.5 Allergy status to narcotic agent
CPT/HCPCS: 36415; 71045; 80053; 84484; 85025; 93005; 96374; 99285; J2060

== ENCOUNTER 2019-08-11 13:53 | Outpatient (CLI) | payer OTHER | END 2019-08-11 23:59 | disposition home or self-care (01) | LOC: 64 CT 13:53 | PROVIDERS: ATTEND Family Medicine | DX: R91.1 Solitary pulmonary nodule (principal); I10 Essential (primary) hypertension | CPT/HCPCS: 71250 ==

== ENCOUNTER 2019-08-31 16:22 | Emergency (ER) | payer OTHER ==
[~2019-08-31] VITALS: Ht 157.5 cm; Wt 64.0 kg
[2019-08-31 17:09] LABS: BASOPHILS # (AUTO) 0.1 X10'3 (0-0.2); BASOPHILS % (AUTO) 1.5 % (0-1); EOSINOPHILS # (AUTO) 0.4 X10'3 (0-0.9); EOSINOPHILS % (AUTO) 6.2 % (0-6); HEMATOCRIT 34.3 % (35.0-45.0); HEMOGLOBIN 11.4 g/dl (12.0-16.0); LYMPHOCYTES # (AUTO) 1.9 X10'3 (1.1-4.8); LYMPHOCYTES % (AUTO) 28.4 % (21-51); MEAN CORPUSCULAR HEMOGLOBIN 27.2 PG (27.0-31.0); MEAN CORPUSCULAR HGB CONC 33.1 g/dL (33.0-36.5); MEAN CORPUSCULAR VOLUME 82.1 FL (78-98); MEAN PLATELET VOLUME 8.3 FL (7.4-10.4); MONOCYTES # (AUTO) 0.4 X10'3 (0-0.9); MONOCYTES % (AUTO) 6.1 % (2-12); NEUTROPHILS % (AUTO) 57.8 % (42-75); PLATELET COUNT 327 X10'3 (140-440); RED BLOOD COUNT 4.18 X10'6 (4.20-5.60); RED CELL DISTRIBUTION WIDTH 17.2 % (11.5-14.5); WHITE BLOOD COUNT 6.8 X10'3 (4.5-11.0)
[2019-08-31 17:16] LABS: BLOOD UREA NITROGEN 17 MG/DL (7-18); CHLORIDE 107 MMOL/L (99-107); POTASSIUM 3.7 MMOL/L (3.5-5.1)
[2019-08-31] MEDS ORDERED: ondansetron/PF 4mg/2ml inj IV ONE (17:20)
[2019-08-31] MEDS ORDERED: normal saline 1000ML IV soln IVB ONE (17:20)
[2019-08-31] MEDS ORDERED: morphine 4 MG/ML inj SYRINge IV PRN (17:20)
[2019-08-31] MEDS ORDERED: ketorolac tromethamine 15mg/ml inj. IV ONE (17:25)
[2019-08-31 17:30] LABS: ALANINE AMINOTRANSFERASE 17 U/L (12-78); ALBUMIN 3.7 G/DL (3.4-5.0); ALBUMIN/GLOBULIN RATIO 0.9 (1.1-1.5); ALKALINE PHOSPHATASE 106 IU/L (46-116); ANION GAP 6 (8-16); ASPARTATE AMINO TRANSFERASE 11 U/L (10-37); BILIRUBIN,TOTAL 0.1 MG/DL (0.1-1.0); BUN/CREATININE RATIO 18.9 (6.6-38.0); CALCIUM 8.9 MG/DL (8.5-10.1); GLUCOSE 124 MG/DL (70-104); SODIUM 141 MMOL/L (135-145); TOTAL CARBON DIOXIDE 28.3 MMOL/L (24-32); TOTAL PROTEIN 7.7 G/DL (6.4-8.2); eGFR 68 ML/MIN
[2019-08-31] MEDS ORDERED: fentaNYL/PF 50MCG/1 ML 2ML syringe IV ONE (17:30)
[2019-08-31] MEDS ORDERED: folic acid 1mg tablet PO ONE (17:30)
[2019-08-31] MEDS ORDERED: thiamine 100mg tablet PO ONE (17:30)
[2019-08-31 17:40] LABS: URINE HCG NEGATIVE (NEG)
[2019-08-31 17:41] LABS: CLARITY,URINE CLOUDY (Clear); GLUCOSE, URINE NEGATIVE (Neg); KETONES,URINE NEGATIVE (Neg); LEUKOCYTE ESTERASE ,URINE NEGATIVE (Neg); NITRITES, URINE NEGATIVE (Neg); OCCULT BLOOD,URINE LARGE (Neg); PROTEIN,URINE 100 mg/dl (Neg); UROBILINOGEN,URINE 0.2 E.U/dL (0.2-1.0)
[2019-08-31 17:43] LABS: COLOR,URINE DARK YELLOW (Yellow); UA COLLECTION TYPE CLN CATCH MIDSTREAM
[2019-08-31 17:50] LABS: LIPASE 159 U/L (73-393)
[2019-08-31 18:24] LABS: RBC,URINE TNTC /HPF (0-2); WBC,URINE 0-4 /HPF (0-4)
[2019-08-31 18:25] LABS: BACTERIA,URINE FEW /HPF (Neg); MUCUS STRANDS MANY /LPF (Neg); SQUAMOUS EPITHELIAL CELL,UR MODERATE /LPF (FEW)
[2019-08-31 18:26] LABS: HYALINE CASTS 0-3 /LPF (NEGATIVE); TRANSITIONAL EPI CELLS,URINE FEW /HPF
[2019-08-31] MEDS ORDERED: ONDA4TAB6 PO (19:10)
[2019-08-31] MEDS ORDERED: FLO0.4C PO (19:10)
[2019-08-31] MEDS ORDERED: OXYC-145 PO (19:10)
[2019-08-31 19:25] VITALS: BP 133/86
== END 2019-08-31 19:25 | disposition home or self-care (01) ==
LOC: ER 16:22
DX: N20.0 Calculus of kidney (principal); I10 Essential (primary) hypertension; Z86.2 Personal history of diseases of the blood and blood-forming organs and certain disorders involving the immune mechanism; Z90.49 Acquired absence of other specified parts of digestive tract; Z88.1 Allergy status to other antibiotic agents; Z88.5 Allergy status to narcotic agent; Z79.899 Other long term (current) drug therapy
CPT/HCPCS: 36415; 74176; 80053; 81001; 81025; 83690; 85025; 96374; 96375; 99284; J1885; J2405; J3010; J7030

== ENCOUNTER 2019-09-27 17:10 | Inpatient (IN) | payer OTHER ==
[~2019-09-27] VITALS: Ht 157.5 cm; Wt 66.0 kg
[~2019-09-27 17:10] MED LIST changes: +ONDA4TAB6 PO; +OXYC-145 PO
[2019-09-27] MEDS ORDERED: normal saline 1000ML IV soln IVB ONE (17:45)
[2019-09-27] MEDS ORDERED: ondansetron/PF 4mg/2ml inj IV ONE ×2 (17:45→20:35)
[2019-09-27] MEDS ORDERED: ketorolac trometh. 30mg/ml inj. IV ONE (17:45)
[2019-09-27] MEDS ORDERED: morphine 4 MG/ML inj SYRINge IV PRN (17:45)
[2019-09-27 18:39] LABS: CLARITY,URINE CLEAR (Clear); COLOR,URINE YELLOW (Yellow); GLUCOSE, URINE NEGATIVE (Neg); KETONES,URINE NEGATIVE (Neg); LEUKOCYTE ESTERASE ,URINE TRACE (Neg); NITRITES, URINE NEGATIVE (Neg); OCCULT BLOOD,URINE LARGE (Neg); PROTEIN,URINE NEGATIVE (Neg); UROBILINOGEN,URINE 0.2 E.U/dL (0.2-1.0)
[2019-09-27 18:43] LABS: UA COLLECTION TYPE CLN CATCH MIDSTREAM
[2019-09-27 18:45] LABS: BACTERIA,URINE NONE SEEN /HPF (Neg); SQUAMOUS EPITHELIAL CELL,UR MODERATE /LPF (FEW); WBC,URINE 0-4 /HPF (0-4)
[2019-09-27] MEDS ORDERED: fentaNYL/PF 50MCG/1 ML 2ML syringe IV ONE (19:15)
[2019-09-27 19:41] LABS: BASOPHILS # (AUTO) 0.1 X10'3 (0-0.2); BASOPHILS % (AUTO) 0.8 % (0-1); EOSINOPHILS # (AUTO) 0.4 X10'3 (0-0.9); EOSINOPHILS % (AUTO) 5.5 % (0-6); HEMATOCRIT 25.7 % (35.0-45.0); HEMOGLOBIN 8.5 g/dl (12.0-16.0); LYMPHOCYTES # (AUTO) 2.1 X10'3 (1.1-4.8); LYMPHOCYTES % (AUTO) 29.1 % (21-51); MEAN CORPUSCULAR HEMOGLOBIN 26.1 PG (27.0-31.0); MEAN CORPUSCULAR HGB CONC 33.1 g/dL (33.0-36.5); MEAN CORPUSCULAR VOLUME 78.8 FL (78-98); MONOCYTES # (AUTO) 0.6 X10'3 (0-0.9); MONOCYTES % (AUTO) 7.8 % (2-12); NEUTROPHILS # (AUTO) 4.1 X10'3 (1.8-7.7); NEUTROPHILS % (AUTO) 56.8 % (42-75); PLATELET COUNT 272 X10'3 (140-440); RED BLOOD COUNT 3.26 X10'6 (4.20-5.60); RED CELL DISTRIBUTION WIDTH 16.3 % (11.5-14.5); WHITE BLOOD COUNT 7.3 X10'3 (4.5-11.0)
[2019-09-27 19:55] LABS: ALANINE AMINOTRANSFERASE 20 U/L (12-78); ALBUMIN 3.1 G/DL (3.4-5.0); ALBUMIN/GLOBULIN RATIO 0.9 (1.1-1.5); ALKALINE PHOSPHATASE 84 IU/L (46-116); ANION GAP 11 (8-16); ASPARTATE AMINO TRANSFERASE 21 U/L (10-37); BILIRUBIN,TOTAL 0.2 MG/DL (0.1-1.0); BLOOD UREA NITROGEN 14 MG/DL (7-18); BUN/CREATININE RATIO 14.6 (6.6-38.0); CALCIUM 7.6 MG/DL (8.5-10.1); CHLORIDE 105 MMOL/L (99-107); CREATININE 0.96 MG/DL (0.40-0.90); GLUCOSE 81 MG/DL (70-104); LIPASE 636 U/L (73-393); POTASSIUM 3.2 MMOL/L (3.5-5.1); SODIUM 139 MMOL/L (135-145); TOTAL CARBON DIOXIDE 22.8 MMOL/L (24-32); TOTAL PROTEIN 6.4 G/DL (6.4-8.2); eGFR 63 ML/MIN
[2019-09-27] MEDS ORDERED: IRON-12 PO (20:29)
[2019-09-27] MEDS ORDERED: PER5325T PO (20:30)
[2019-09-27] MEDS ORDERED: ondansetron/PF 4mg/2ml inj IV PRN (21:00)
[2019-09-27] MEDS ORDERED: CADD PCA waste documentation MC PRN (21:00)
[2019-09-27] MEDS ORDERED: naloxone 0.4 mg/ml inj IV PRN (21:00)
--- NOTE | 2019-09-27 22:20 | NUR ---
Patient in room ORTHO 4016. I have received report from Amy LEE and had the opportunity to ask questions and assume patient care.
[2019-09-27] MEDS: HYDROmorphone/NS 1 mg/ml CADD 50 ML IV SCH ×2 (23:00→23:25)
[2019-09-27 23:10] VITALS: BP 143/97
[2019-09-27] MEDS: normal saline 1000ml 1,000 ML IV SCH (23:23)
[2019-09-27] MEDS ORDERED: carvedilol 6.25mg tablet PO ONE (23:40)
[2019-09-28] MEDS: HYDROmorphone/NS 1 mg/ml CADD 50 ML IV SCH ×8 (01:00→15:00)
[2019-09-28 03:21] VITALS: BP 130/88
[2019-09-28 06:00] VITALS: BP 136/83
--- NOTE | 2019-09-28 06:33 | NUR ---
Problems reprioritized. Patient report given, questions answered & plan of care reviewed with Eleazar LEE.
--- NOTE | 2019-09-28 06:40 | NUR ---
Patient in room ORTHO 4022. I have received report from Nicole and had the opportunity to ask questions and assume patient care.
[2019-09-28] MEDS: normal saline 1000ml 1,000 ML IV SCH ×2 (06:58→09:39)
[2019-09-28] MEDS ORDERED: normal saline 1000ml 1,000 ML IV ONE ×2 (07:45→14:25)
[2019-09-28 08:00] LABS: BASOPHILS # (AUTO) 0.1 X10'3 (0-0.2); EOSINOPHILS # (AUTO) 0.2 X10'3 (0-0.9); EOSINOPHILS % (AUTO) 4.8 % (0-6); HEMOGLOBIN 8.6 g/dl (12.0-16.0); LYMPHOCYTES # (AUTO) 1.6 X10'3 (1.1-4.8); LYMPHOCYTES % (AUTO) 31.8 % (21-51); MEAN CORPUSCULAR HEMOGLOBIN 26.2 PG (27.0-31.0); MEAN CORPUSCULAR HGB CONC 32.9 g/dL (33.0-36.5); MEAN CORPUSCULAR VOLUME 79.5 FL (78-98); MONOCYTES # (AUTO) 0.4 X10'3 (0-0.9); MONOCYTES % (AUTO) 7.8 % (2-12); NEUTROPHILS # (AUTO) 2.8 X10'3 (1.8-7.7); NEUTROPHILS % (AUTO) 54.6 % (42-75); PLATELET COUNT 263 X10'3 (140-440); RED BLOOD COUNT 3.27 X10'6 (4.20-5.60); RED CELL DISTRIBUTION WIDTH 16.5 % (11.5-14.5); WHITE BLOOD COUNT 5.1 X10'3 (4.5-11.0)
[2019-09-28] MEDS ORDERED: carvedilol 6.25mg tablet PO SCH (08:00)
[2019-09-28] MEDS ORDERED: pantoprazole 40mg Tablet.DR PO SCH (08:00)
[2019-09-28 08:16] LABS: ALANINE AMINOTRANSFERASE 198 U/L (12-78); ALBUMIN/GLOBULIN RATIO 0.9 (1.1-1.5); ALKALINE PHOSPHATASE 127 IU/L (46-116); ANION GAP 9 (8-16); ASPARTATE AMINO TRANSFERASE 187 U/L (10-37); BILIRUBIN,TOTAL 0.3 MG/DL (0.1-1.0); BLOOD UREA NITROGEN 7 MG/DL (7-18); BUN/CREATININE RATIO 8.9 (6.6-38.0); CALCIUM 7.8 MG/DL (8.5-10.1); CHLORIDE 107 MMOL/L (99-107); CREATININE 0.79 MG/DL (0.40-0.90); GLUCOSE 82 MG/DL (70-104); LIPASE 198 U/L (73-393); POTASSIUM 3.6 MMOL/L (3.5-5.1); SODIUM 141 MMOL/L (135-145); TOTAL CARBON DIOXIDE 25.4 MMOL/L (24-32); TOTAL PROTEIN 6.3 G/DL (6.4-8.2); eGFR 79 ML/MIN
[2019-09-28] MEDS ORDERED: tamsulosin 0.4mg capsule PO SCH (09:00)
[2019-09-28] MEDS ORDERED: CefTRIAXone/D5W-Rocephin 1gm 50 ML IV SCH (09:15)
--- NOTE | 2019-09-28 09:24 | NUR ---
Eleazar [id number] Re: Aye Renee Pt is having some anxiety about MRCP. Can she have Ativan?
[2019-09-28] MEDS ORDERED: potassium CL 10mEq/100ml bag 100 ML IV PRN (09:45)
[2019-09-28] MEDS ORDERED: magnesium Cl slow-release 64mg tablet PO PRN (09:45)
[2019-09-28] MEDS ORDERED: potassium Cl 20 mEq SR tablet PO PRN ×2 (09:45)
[2019-09-28] MEDS ORDERED: K and/or MAG REPLACEMENT MC SCH (09:45)
[2019-09-28] MEDS ORDERED: LORazepam 2 mg/ml vial IV PRN (09:45)
[2019-09-28] MEDS ORDERED: magnesium 4gm in 100ml NS 100 ML IV PRN (09:45)
[2019-09-28 10:00] VITALS: BP 156/61
[2019-09-28] MEDS ORDERED: CEFD300C3 PO (14:55)
[2019-09-28] MEDS ORDERED: FLO0.4C PO (14:56)
--- NOTE | 2019-09-28 16:16 | NUR ---
Safe DC. Left home with family. All personal items with patient.
== END 2019-09-28 16:15 | disposition home or self-care (01) | DRG 694 ==
LOC: ER 17:10 → ED HOLD 20:58 → ORTHO 4S 22:33
PROVIDERS: ADMIT Internal Medicine; ATTEND Family Medicine
DX: N20.1 Calculus of ureter (principal); I10 Essential (primary) hypertension; Z80.0 Family history of malignant neoplasm of digestive organs; Z88.5 Allergy status to narcotic agent; Z88.1 Allergy status to other antibiotic agents; Z90.49 Acquired absence of other specified parts of digestive tract; Z79.899 Other long term (current) drug therapy
CPT/HCPCS: 36415; 74176; 74181; 76775; 80053; 81001; 83690; 85025; 87081; 87088; 96374; 99285; G0378; J0696; J1170; J1885; J2060; J2270; J2405; J3010; J7030

== ENCOUNTER 2019-10-01 04:44 | Inpatient (IN) | payer OTHER ==
[2019-10-01] VITALS (15 sets, daily range): BP systolic 132–155; BP diastolic 61–91
[~2019-10-01] VITALS: Ht 165.1 cm; Wt 65.0 kg
[~2019-10-01 04:44] MED LIST changes: +CEFD300C3 PO; -CHOL500049 PO; +FLO0.4C PO; +IRON-12 PO; -LISI-604 PO; -ONDA4TAB6 PO; -OXYC-145 PO; +PER5325T PO
[2019-10-01] MEDS ORDERED: ketorolac trometh. 30mg/ml inj. IV ONE (04:55)
[2019-10-01] MEDS ORDERED: normal saline 1000ML IV soln IVB ONE (04:55)
[2019-10-01] MEDS ORDERED: morphine 4 MG/ML inj SYRINge IV PRN (04:55)
[2019-10-01] MEDS ORDERED: ondansetron/PF 4mg/2ml inj IV ONE (04:55)
[2019-10-01] MEDS ORDERED: fentaNYL/PF 50MCG/1 ML 2ML syringe IV ONE (05:00)
[2019-10-01] MEDS ORDERED: IRON-32 PO (05:17)
[2019-10-01 05:18] LABS: BASOPHILS # (AUTO) 0.1 X10'3 (0-0.2); BASOPHILS % (AUTO) 0.9 % (0-1); EOSINOPHILS # (AUTO) 0.5 X10'3 (0-0.9); EOSINOPHILS % (AUTO) 5.6 % (0-6); HEMATOCRIT 30.1 % (35.0-45.0); HEMOGLOBIN 9.8 g/dl (12.0-16.0); LYMPHOCYTES # (AUTO) 1.6 X10'3 (1.1-4.8); LYMPHOCYTES % (AUTO) 18.3 % (21-51); MEAN CORPUSCULAR HEMOGLOBIN 25.4 PG (27.0-31.0); MEAN CORPUSCULAR HGB CONC 32.6 g/dL (33.0-36.5); MEAN PLATELET VOLUME 7.9 FL (7.4-10.4); MONOCYTES # (AUTO) 0.7 X10'3 (0-0.9); MONOCYTES % (AUTO) 8.1 % (2-12); NEUTROPHILS # (AUTO) 5.9 X10'3 (1.8-7.7); NEUTROPHILS % (AUTO) 67.1 % (42-75); PLATELET COUNT 354 X10'3 (140-440); RED BLOOD COUNT 3.86 X10'6 (4.20-5.60); RED CELL DISTRIBUTION WIDTH 16.3 % (11.5-14.5); WHITE BLOOD COUNT 8.8 X10'3 (4.5-11.0)
[2019-10-01] MEDS ORDERED: normal saline 1000ml 1,000 ML IV SCH (05:18)
[2019-10-01 05:19] LABS: CLARITY,URINE CLEAR (Clear); COLOR,URINE YELLOW (Yellow); GLUCOSE, URINE NEGATIVE (Neg); KETONES,URINE NEGATIVE (Neg); LEUKOCYTE ESTERASE ,URINE NEGATIVE (Neg); NITRITES, URINE NEGATIVE (Neg); OCCULT BLOOD,URINE NEGATIVE (Neg); PROTEIN,URINE NEGATIVE (Neg); UROBILINOGEN,URINE 0.2 E.U/dL (0.2-1.0)
[2019-10-01] MEDS ORDERED: naloxone 0.4 mg/ml inj IV PRN (05:20)
[2019-10-01] MEDS ORDERED: CADD PCA waste documentation MC PRN (05:20)
[2019-10-01] MEDS ORDERED: ondansetron/PF 4mg/2ml inj IV PRN ×2 (05:20→10:20)
[2019-10-01 05:24] LABS: UA COLLECTION TYPE NON-SPECIFIED
[2019-10-01 05:34] LABS: ALANINE AMINOTRANSFERASE 84 U/L (12-78); ALBUMIN 3.8 G/DL (3.4-5.0); ALKALINE PHOSPHATASE 115 IU/L (46-116); ANION GAP 10 (8-16); ASPARTATE AMINO TRANSFERASE 28 U/L (10-37); BILIRUBIN,TOTAL 0.3 MG/DL (0.1-1.0); BLOOD UREA NITROGEN 13 MG/DL (7-18); BUN/CREATININE RATIO 11.7 (6.6-38.0); CALCIUM 8.9 MG/DL (8.5-10.1); CHLORIDE 102 MMOL/L (99-107); CREATININE 1.11 MG/DL (0.40-0.90); GLUCOSE 104 MG/DL (70-104); LIPASE 141 U/L (73-393); POTASSIUM 3.8 MMOL/L (3.5-5.1); SODIUM 138 MMOL/L (135-145); TOTAL CARBON DIOXIDE 26.4 MMOL/L (24-32); TOTAL PROTEIN 7.5 G/DL (6.4-8.2); eGFR 53 ML/MIN
[2019-10-01] MEDS ORDERED: HYDROmorphone/NS 1 mg/ml CADD 50 ML IV SCH (07:00)
[2019-10-01] MEDS ORDERED: ceFAZolin 1GM/D5W- ADD-VANTAGE 50 ML IV ONE (08:00)
[2019-10-01] MEDS ORDERED: pantoprazole 40mg Tablet.DR PO SCH (08:00)
[2019-10-01] MEDS ORDERED: carvedilol 6.25mg tablet PO SCH (08:00)
[2019-10-01] MEDS ORDERED: tamsulosin 0.4mg capsule PO SCH (08:00)
[2019-10-01] MEDS: HYDROmorphone/NS 1 mg/ml CADD 50 ML IV SCH ×4 (08:23→12:48)
[2019-10-01] MEDS ORDERED: ringers solution, lacted 1,000 ML IV SCH (10:16)
[2019-10-01] MEDS ORDERED: HYDROmorphone inj. 0.5 MG/0.5 ML DISP.SYRIN IV PRN ×2 (10:20)
[2019-10-01] MEDS ORDERED: meperidine/PF 25mg/ml syringe IV PRN ×2 (10:20)
[2019-10-01] MEDS ORDERED: sevoflurane 250ml liquid IH ONE (10:22)
[2019-10-01] MEDS ORDERED: fentaNYL/PF 50MCG/1 ML 2ML syringe ONE (10:22)
[2019-10-01] MEDS ORDERED: midazolam 2 mg/2 ml injection ONE (10:25)
[2019-10-01] MEDS ORDERED: propofol inj 20 ML IV ONE (10:28)
[2019-10-01] MEDS ORDERED: dexamethasone sod phosphate 4mg/ml inj. ONE (10:33)
[2019-10-01] MEDS ORDERED: ceFOXitin 2 GM ADDVANTGE BAG 50 ML IV ONE (10:39)
[2019-10-01] MEDS ORDERED: iohexol 300 MG/1 ML 50ml polymer ONE (10:40)
[2019-10-01] MEDS ORDERED: ceFAZolin 1000mg inj ONE ×2 (10:42)
[2019-10-01] MEDS ORDERED: ondansetron/PF 4mg/2ml inj ONE (11:09)
--- NOTE | 2019-10-01 11:25 | NUR ---
Received from OR via BED, accompanied by Anesthesiologist LEEROY and report given by Anesthesiolgist. PT DROWSY, OXYGENATING WELL ON 10 LPM O2 VIA MASK, NO RESP DISTRESS NOTED. DENIES NAUSEA OR PAIN AT THIS TIME. SCDS ON, VSS.
--- NOTE | 2019-10-01 12:25 | NUR ---
Report called to receiving nurse. Transferred via BED Belongings IN PT ROOM. VSS, TOLERATING SIPS OF CLEAR LIQUIDS, NO NAUSEA. DENIES PAIN. TRANSFERRED BACK TO ORTHO FLOOR IN STABLE CONDITION. Special Issues communicated to receiving nurse.
--- NOTE | 2019-10-01 12:34 | NUR ---
Transferred from to 4014B. Awake but drowsy at this time. VSS. Denies Pain. Will continue to monitor. Per Dr. Palacios pt many dc to home later today.
--- NOTE | 2019-10-01 15:15 | NUR ---
Pt doing well. VSS. Denies pain at this time. TC placed to Dr. Stewart for potential discharge. Dr. Stewart wrote dc after examination at bedside. Dr. Palacios wrote RX for Keflex & [place] 5 prn. Copies made and placed in pts chart. Reviewed discharge instructions with patient. Per pt she is to follow up with Dr. Palacios in 2 weeks as long as she remains stable. Pt voided 800 ml delilah then 200 clear urine post procedure. ([id number]) Pt discharged to private vehicle via w/c.
== END 2019-10-01 15:15 | disposition home or self-care (01) | DRG 661 ==
LOC: ER 04:44 → EEVIPCON 05:18 → ED HOLD 05:18 → ORTHO 4S 07:05 → UNDODISIN 15:15
PROVIDERS: ADMIT Internal Medicine; ATTEND Family Medicine
PROC: BT1D1ZZ Fluoroscopy of Right Kidney, Ureter and Bladder using Low Osmolar Contrast (ICD-10-PCS; 2019-10-01)
PROC: 0T768DZ Dilation of Right Ureter with Intraluminal Device, Via Natural or Artificial Opening Endoscopic (ICD-10-PCS; principal; 2019-10-01 10:22)
DX: N13.2 Hydronephrosis with renal and ureteral calculous obstruction (principal); I10 Essential (primary) hypertension; Z80.0 Family history of malignant neoplasm of digestive organs; Z88.5 Allergy status to narcotic agent; Z88.1 Allergy status to other antibiotic agents; Z90.49 Acquired absence of other specified parts of digestive tract; Z79.899 Other long term (current) drug therapy
CPT/HCPCS: 96374; 96375; 99285; Z7506; Z7508; 36415; 74420; 76000; 80053; 81003; 83690; 85025; 87081; A4618; C1758; C1769; C2617; G0378; J0690; J0694; J1100; J1170; J1885; J2250; J2405; J2704; J3010; J7030; Q9967

== ENCOUNTER 2019-10-03 10:15 | Outpatient (CLI) | payer OTHER ==
[~2019-10-03 10:15] MED LIST changes: -CEFD300C3 PO; -IRON-12 PO; +IRON-32 PO
== END 2019-10-03 23:59 | disposition home or self-care (01) ==
LOC: 64 CT 10:15
PROVIDERS: ATTEND Family Medicine
DX: N85.2 Hypertrophy of uterus (principal); N85.8 Other specified noninflammatory disorders of uterus; K44.9 Diaphragmatic hernia without obstruction or gangrene; K76.0 Fatty (change of) liver, not elsewhere classified; J90 Pleural effusion, not elsewhere classified
CPT/HCPCS: 74176

== ENCOUNTER 2019-10-06 14:50 | Emergency (ER) | payer OTHER ==
[~2019-10-06] VITALS: Ht 157.5 cm; Wt 65.0 kg
[2019-10-06] MEDS ORDERED: LIDOcaine 2% (20 mg/ml) 5ml cardiac syringe IV ONE (15:20)
--- NOTE | 2019-10-06 15:20 | NUR ---
Spoke with Titi the pharmacist regarding lidocaine medication order. He advised that it is not to be given except in a code situation via IV and to speak with Dr Weaver.
[2019-10-06] MEDS ORDERED: normal saline 1000ml 1,000 ML IV ONE (15:25)
[2019-10-06] MEDS ORDERED: normal saline 1000ML IV soln IVB ONE (15:25)
[2019-10-06 15:43] LABS: CLARITY,URINE CLOUDY (Clear); COLOR,URINE ORANGE (Yellow); UA COLLECTION TYPE CLN CATCH MIDSTREAM
[2019-10-06 15:47] LABS: BASOPHILS # (AUTO) 0.1 X10'3 (0-0.2); BASOPHILS % (AUTO) 0.6 % (0-1); EOSINOPHILS # (AUTO) 0.6 X10'3 (0-0.9); EOSINOPHILS % (AUTO) 6.1 % (0-6); HEMATOCRIT 31.6 % (35.0-45.0); HEMOGLOBIN 10.3 g/dl (12.0-16.0); LYMPHOCYTES # (AUTO) 2.1 X10'3 (1.1-4.8); LYMPHOCYTES % (AUTO) 22.1 % (21-51); MEAN CORPUSCULAR HEMOGLOBIN 25.4 PG (27.0-31.0); MEAN CORPUSCULAR HGB CONC 32.6 g/dL (33.0-36.5); MEAN CORPUSCULAR VOLUME 77.7 FL (78-98); MEAN PLATELET VOLUME 7.7 FL (7.4-10.4); MONOCYTES # (AUTO) 0.5 X10'3 (0-0.9); MONOCYTES % (AUTO) 5.3 % (2-12); NEUTROPHILS # (AUTO) 6.2 X10'3 (1.8-7.7); NEUTROPHILS % (AUTO) 65.9 % (42-75); PLATELET COUNT 377 X10'3 (140-440); RED BLOOD COUNT 4.07 X10'6 (4.20-5.60); RED CELL DISTRIBUTION WIDTH 16.5 % (11.5-14.5); WHITE BLOOD COUNT 9.4 X10'3 (4.5-11.0)
[2019-10-06 15:50] LABS: MUCUS STRANDS FEW /LPF (Neg); SQUAMOUS EPITHELIAL CELL,UR FEW /LPF (FEW)
[2019-10-06 15:51] LABS: BACTERIA,URINE 1+ /HPF (Neg); RBC,URINE TNTC /HPF (0-2); WBC,URINE 20-30 /HPF (0-4)
--- NOTE | 2019-10-06 15:52 | NUR ---
Lidocaine was given by another nurse without this nurse's knowledge prior to Dr Weaver being available for question regarding medication. When this RN spoke to Dr Weaver, he stated that he ordered it how he wanted to and that it had already been given. Let him know that we do not have protocol to give it not in a code situation. Pt is on casey saw operator and will be monitored closely for any side effects of the medication. Charge Nurse, Betzaida aware of situation.
[2019-10-06 15:53] LABS: WBC CLUMPS,URINE FEW /HPF (NEGATIVE)
[2019-10-06 15:56] LABS: ALANINE AMINOTRANSFERASE 29 U/L (12-78); ALBUMIN 3.6 G/DL (3.4-5.0); ALBUMIN/GLOBULIN RATIO 0.9 (1.1-1.5); ALKALINE PHOSPHATASE 101 IU/L (46-116); ANION GAP 9 (8-16); ASPARTATE AMINO TRANSFERASE 16 U/L (10-37); BILIRUBIN,TOTAL 0.3 MG/DL (0.1-1.0); BLOOD UREA NITROGEN 11 MG/DL (7-18); BUN/CREATININE RATIO 10.2 (6.6-38.0); CALCIUM 8.9 MG/DL (8.5-10.1); CHLORIDE 104 MMOL/L (99-107); CREATININE 1.08 MG/DL (0.40-0.90); GLUCOSE 105 MG/DL (70-104); POTASSIUM 3.9 MMOL/L (3.5-5.1); SODIUM 137 MMOL/L (135-145); TOTAL CARBON DIOXIDE 24.3 MMOL/L (24-32); TOTAL PROTEIN 7.6 G/DL (6.4-8.2); eGFR 55 ML/MIN
[2019-10-06] MEDS: ketorolac tromethamine 15mg/ml inj. IV ONE ×2 (16:06→16:12)
--- NOTE | 2019-10-06 16:51 | NUR ---
Checked on pt. Pt states that she is doing okay and that her right flank pain is 1/10 at the moment. Pt denies any needs at this time.
[2019-10-06] MEDS ORDERED: CefTRIAXone/D5W-Rocephin 1gm 50 ML IV ONE (17:15)
[2019-10-06 18:24] VITALS: BP 136/86
== END 2019-10-06 18:30 | disposition home or self-care (01) ==
LOC: EEVIPCON 14:51 → ER 14:51
DX: N23 Unspecified renal colic (principal); I10 Essential (primary) hypertension; Z86.2 Personal history of diseases of the blood and blood-forming organs and certain disorders involving the immune mechanism; Z90.49 Acquired absence of other specified parts of digestive tract; Z88.5 Allergy status to narcotic agent; Z88.1 Allergy status to other antibiotic agents; Z79.899 Other long term (current) drug therapy
CPT/HCPCS: 36415; 80053; 81001; 85025; 87088; 96365; 96375; 99285; J0696; J7030

== ENCOUNTER 2019-10-12 08:48 | Outpatient (CLI) | payer OTHER ==
[2019-10-12 10:15] LABS: BASOPHILS # (AUTO) 0.1 X10'3 (0-0.2); BASOPHILS % (AUTO) 1.3 % (0-1); EOSINOPHILS # (AUTO) 0.4 X10'3 (0-0.9); EOSINOPHILS % (AUTO) 6.5 % (0-6); HEMATOCRIT 30.3 % (35.0-45.0); HEMOGLOBIN 9.7 g/dl (12.0-16.0); LYMPHOCYTES # (AUTO) 1.4 X10'3 (1.1-4.8); LYMPHOCYTES % (AUTO) 24.8 % (21-51); MEAN CORPUSCULAR HEMOGLOBIN 24.8 PG (27.0-31.0); MEAN CORPUSCULAR HGB CONC 31.9 g/dL (33.0-36.5); MEAN CORPUSCULAR VOLUME 77.5 FL (78-98); MEAN PLATELET VOLUME 7.8 FL (7.4-10.4); MONOCYTES # (AUTO) 0.4 X10'3 (0-0.9); MONOCYTES % (AUTO) 6.3 % (2-12); NEUTROPHILS # (AUTO) 3.5 X10'3 (1.8-7.7); NEUTROPHILS % (AUTO) 61.1 % (42-75); PLATELET COUNT 344 X10'3 (140-440); RED BLOOD COUNT 3.91 X10'6 (4.20-5.60); RED CELL DISTRIBUTION WIDTH 16.4 % (11.5-14.5); WHITE BLOOD COUNT 5.8 X10'3 (4.5-11.0)
[2019-10-12 10:17] LABS: CLARITY,URINE SLIGHTLY CLOUDY (Clear); COLOR,URINE YELLOW (Yellow); GLUCOSE, URINE NEGATIVE (Neg); KETONES,URINE NEGATIVE (Neg); LEUKOCYTE ESTERASE ,URINE TRACE (Neg); NITRITES, URINE NEGATIVE (Neg); OCCULT BLOOD,URINE NEGATIVE (Neg); PROTEIN,URINE NEGATIVE (Neg); UROBILINOGEN,URINE 0.2 E.U/dL (0.2-1.0)
[2019-10-12 10:19] LABS: UA COLLECTION TYPE CLN CATCH MIDSTREAM
[2019-10-12 10:34] LABS: RBC,URINE 0-2 /HPF (0-2)
[2019-10-12 10:35] LABS: % IRON SATURATION 6 % (11-46); IRON 29 UG/DL (49-151); TOTAL IRON BINDING CAPACITY 450 UG/DL (259-388)
[2019-10-12 10:35] LABS: BACTERIA,URINE 1+ /HPF (Neg); MUCUS STRANDS FEW /LPF (Neg); SQUAMOUS EPITHELIAL CELL,UR MODERATE /LPF (FEW)
[2019-10-12 10:46] LABS: ALANINE AMINOTRANSFERASE 34 U/L (12-78); ALBUMIN 3.7 G/DL (3.4-5.0); ALBUMIN/GLOBULIN RATIO 0.9 (1.1-1.5); ALKALINE PHOSPHATASE 81 IU/L (46-116); ANION GAP 10 (8-16); ASPARTATE AMINO TRANSFERASE 25 U/L (10-37); BILIRUBIN,TOTAL 0.3 MG/DL (0.1-1.0); BLOOD UREA NITROGEN 12 MG/DL (7-18); BUN/CREATININE RATIO 13.8 (6.6-38.0); CALCIUM 8.6 MG/DL (8.5-10.1); CHLORIDE 108 MMOL/L (99-107); CHOL/HDL RATIO 4.1 (0.00-4.99); CHOLESTEROL 219 MG/DL (0-200); CREATININE 0.87 MG/DL (0.40-0.90); FERRITIN 6 NG/ML (8-252); GLUCOSE 93 MG/DL (70-104); HDL CHOLESTEROL 53 MG/DL (35-60); LDL CHOLESTEROL 135 MG/DL (50-100); POTASSIUM 3.9 MMOL/L (3.5-5.1); SODIUM 143 MMOL/L (135-145); TOTAL CARBON DIOXIDE 24.6 MMOL/L (24-32); TOTAL PROTEIN 7.6 G/DL (6.4-8.2); TRIGLYCERIDES 142 MG/DL (20-135); eGFR 70 ML/MIN
[2019-10-17 09:10] LABS: VITAMIN D, 1,25 DIHYDROXY 72.6 pg/mL (19.9-79.3)
== END 2019-10-12 23:59 | disposition home or self-care (01) ==
LOC: LAB 08:48
PROVIDERS: ATTEND Family Medicine
DX: D50.9 Iron deficiency anemia, unspecified (principal); E55.9 Vitamin D deficiency, unspecified
CPT/HCPCS: 36415; 80053; 80061; 81001; 82306; 82652; 82728; 83540; 83550; 84439; 84443; 84466; 85025

== ENCOUNTER 2019-11-14 09:01 | Outpatient (CLI) | payer BC ==
[~2019-11-14 09:01] MED LIST changes: -FLO0.4C PO
[2019-11-14 09:54] LABS: BASOPHILS % (AUTO) 0.9 % (0-1); EOSINOPHILS # (AUTO) 0.3 X10'3 (0-0.9); EOSINOPHILS % (AUTO) 6.2 % (0-6); HEMATOCRIT 30.5 % (35.0-45.0); HEMOGLOBIN 9.6 g/dl (12.0-16.0); LYMPHOCYTES # (AUTO) 1.7 X10'3 (1.1-4.8); LYMPHOCYTES % (AUTO) 34.6 % (21-51); MEAN CORPUSCULAR HEMOGLOBIN 24.2 PG (27.0-31.0); MEAN CORPUSCULAR HGB CONC 31.6 g/dL (33.0-36.5); MEAN CORPUSCULAR VOLUME 76.6 FL (78-98); MEAN PLATELET VOLUME 7.9 FL (7.4-10.4); MONOCYTES # (AUTO) 0.3 X10'3 (0-0.9); MONOCYTES % (AUTO) 7.1 % (2-12); NEUTROPHILS # (AUTO) 2.5 X10'3 (1.8-7.7); NEUTROPHILS % (AUTO) 51.2 % (42-75); PLATELET COUNT 297 X10'3 (140-440); RED BLOOD COUNT 3.99 X10'6 (4.20-5.60); RED CELL DISTRIBUTION WIDTH 18.2 % (11.5-14.5); WHITE BLOOD COUNT 4.9 X10'3 (4.5-11.0)
[2019-11-14 10:21] LABS: ALANINE AMINOTRANSFERASE 20 U/L (12-78); ALBUMIN 3.6 G/DL (3.4-5.0); ALBUMIN/GLOBULIN RATIO 0.9 (1.1-1.5); ALKALINE PHOSPHATASE 90 IU/L (46-116); ANION GAP 8 (8-16); ASPARTATE AMINO TRANSFERASE 10 U/L (10-37); BILIRUBIN,TOTAL 0.3 MG/DL (0.1-1.0); BLOOD UREA NITROGEN 13 MG/DL (7-18); BUN/CREATININE RATIO 15.9 (6.6-38.0); CALCIUM 8.5 MG/DL (8.5-10.1); CHLORIDE 107 MMOL/L (99-107); CREATININE 0.82 MG/DL (0.40-0.90); FERRITIN 6 NG/ML (8-252); GLUCOSE 88 MG/DL (70-104); POTASSIUM 3.7 MMOL/L (3.5-5.1); SODIUM 139 MMOL/L (135-145); TOTAL CARBON DIOXIDE 23.7 MMOL/L (24-32); TOTAL PROTEIN 7.5 G/DL (6.4-8.2); eGFR 75 ML/MIN
[2019-11-14 10:22] LABS: % IRON SATURATION 10 % (11-46); IRON 48 UG/DL (49-151); TOTAL IRON BINDING CAPACITY 487 UG/DL (259-388)
[2019-11-15 11:15] LABS: FSH, SERUM 3.1 mIU/mL (.)
== END 2019-11-14 23:59 | disposition home or self-care (01) ==
LOC: RAD 09:01
PROVIDERS: ATTEND Family Medicine
DX: D25.9 Leiomyoma of uterus, unspecified (principal); N20.0 Calculus of kidney; D64.9 Anemia, unspecified; D50.9 Iron deficiency anemia, unspecified; I10 Essential (primary) hypertension; N95.1 Menopausal and female climacteric states
CPT/HCPCS: 36415; 76775; 80053; 82607; 82728; 82746; 83001; 83540; 83550; 84439; 84443; 85025

== ENCOUNTER → 2019-12-01 | Outpatient (CLI) | payer BC | END | disposition home or self-care (01) | LOC: RAD 08:49 | PROVIDERS: ATTEND Family Medicine | DX: N28.1 Cyst of kidney, acquired (principal); N85.2 Hypertrophy of uterus | CPT/HCPCS: 76830; 76856; 93976 ==

== ENCOUNTER 2019-12-14 08:38 | Outpatient (CLI) | payer BC ==
[2019-12-14 09:23] LABS: BASOPHILS # (AUTO) 0.1 X10'3 (0-0.2); BASOPHILS % (AUTO) 1.3 % (0-1); EOSINOPHILS # (AUTO) 0.4 X10'3 (0-0.9); EOSINOPHILS % (AUTO) 8.2 % (0-6); HEMATOCRIT 40.1 % (35.0-45.0); LYMPHOCYTES # (AUTO) 1.2 X10'3 (1.1-4.8); LYMPHOCYTES % (AUTO) 23.7 % (21-51); MEAN CORPUSCULAR HEMOGLOBIN 27.9 PG (27.0-31.0); MEAN CORPUSCULAR HGB CONC 32.5 g/dL (33.0-36.5); MEAN PLATELET VOLUME 8.4 FL (7.4-10.4); MONOCYTES # (AUTO) 0.3 X10'3 (0-0.9); MONOCYTES % (AUTO) 5.4 % (2-12); NEUTROPHILS % (AUTO) 61.4 % (42-75); PLATELET COUNT 227 X10'3 (140-440); RED BLOOD COUNT 4.66 X10'6 (4.20-5.60); RED CELL DISTRIBUTION WIDTH 26.8 % (11.5-14.5); WHITE BLOOD COUNT 4.9 X10'3 (4.5-11.0)
[2019-12-14 10:00] LABS: FERRITIN 21 NG/ML (8-252)
[2019-12-14 10:07] LABS: % IRON SATURATION 18 % (11-46); IRON 70 UG/DL (49-151); TOTAL IRON BINDING CAPACITY 397 UG/DL (259-388)
[2019-12-14 10:22] LABS: PLATELET ESTIMATE NORMAL
[2019-12-14 10:23] LABS: ANISOCYTOSIS 3+
== END 2019-12-14 23:59 | disposition home or self-care (01) ==
LOC: LAB 08:38
PROVIDERS: ATTEND Family Medicine
DX: D50.9 Iron deficiency anemia, unspecified (principal)
CPT/HCPCS: 36415; 82607; 82728; 83090; 83540; 83550; 83921; 85025

== ENCOUNTER 2020-02-12 11:05 | Outpatient (CLI) | payer BC ==
[~2020-02-12 11:05] MED LIST changes: -PANT40TA4 PO; +PANT40TA54 PO
[2020-02-12 11:44] LABS: BASOPHILS # (AUTO) 0.1 X10'3 (0-0.2); BASOPHILS % (AUTO) 0.9 % (0-1); EOSINOPHILS # (AUTO) 0.4 X10'3 (0-0.9); EOSINOPHILS % (AUTO) 6.6 % (0-6); HEMATOCRIT 36.2 % (35.0-45.0); HEMOGLOBIN 11.9 g/dl (12.0-16.0); LYMPHOCYTES # (AUTO) 1.9 X10'3 (1.1-4.8); LYMPHOCYTES % (AUTO) 31.3 % (21-51); MEAN CORPUSCULAR HEMOGLOBIN 28.2 PG (27.0-31.0); MEAN CORPUSCULAR HGB CONC 32.9 g/dL (33.0-36.5); MEAN CORPUSCULAR VOLUME 85.8 FL (78-98); MONOCYTES # (AUTO) 0.5 X10'3 (0-0.9); MONOCYTES % (AUTO) 8.2 % (2-12); NEUTROPHILS # (AUTO) 3.1 X10'3 (1.8-7.7); PLATELET COUNT 276 X10'3 (140-440); RED BLOOD COUNT 4.22 X10'6 (4.20-5.60); RED CELL DISTRIBUTION WIDTH 18.6 % (11.5-14.5); WHITE BLOOD COUNT 5.9 X10'3 (4.5-11.0)
[2020-02-12 12:46] LABS: ANISOCYTOSIS 2+; PLATELET ESTIMATE NORMAL
[2020-02-13 08:52] LABS: ESTRADIOL 19.6 pg/mL (.); FSH, SERUM 13.3 mIU/mL (.); PROGESTERONE <0.1 ng/mL (.); PROLACTIN 21.4 ng/mL (4.8-23.3); THIIODOTHRONINE, FREE, SERUM 2.6 pg/mL (2.0-4.4)
== END 2020-02-12 23:59 | disposition home or self-care (01) ==
LOC: LAB 11:05
PROVIDERS: ATTEND Family Medicine
DX: D50.9 Iron deficiency anemia, unspecified (principal); D25.9 Leiomyoma of uterus, unspecified; N95.1 Menopausal and female climacteric states
CPT/HCPCS: 36415; 82670; 82728; 83001; 83002; 83540; 83550; 84144; 84146; 84402; 84439; 84443; 84481; 85008; 85025

== ENCOUNTER 2020-05-24 09:20 | Outpatient (CLI) | payer BC ==
[2020-05-24 11:11] LABS: BASOPHILS # (AUTO) 0.1 X10'3 (0-0.2); BASOPHILS % (AUTO) 1.2 % (0-1); EOSINOPHILS # (AUTO) 0.3 X10'3 (0-0.9); EOSINOPHILS % (AUTO) 6.1 % (0-6); HEMATOCRIT 33.2 % (35.0-45.0); HEMOGLOBIN 10.6 g/dl (12.0-16.0); LYMPHOCYTES # (AUTO) 1.7 X10'3 (1.1-4.8); LYMPHOCYTES % (AUTO) 33.2 % (21-51); MEAN CORPUSCULAR HEMOGLOBIN 25.3 PG (27.0-31.0); MEAN CORPUSCULAR VOLUME 79.1 FL (78-98); MEAN PLATELET VOLUME 8.1 FL (7.4-10.4); MONOCYTES # (AUTO) 0.4 X10'3 (0-0.9); MONOCYTES % (AUTO) 7.2 % (2-12); NEUTROPHILS # (AUTO) 2.7 X10'3 (1.8-7.7); NEUTROPHILS % (AUTO) 52.3 % (42-75); PLATELET COUNT 349 X10'3 (140-440); RED BLOOD COUNT 4.19 X10'6 (4.20-5.60); WHITE BLOOD COUNT 5.2 X10'3 (4.5-11.0)
[2020-05-24 11:13] LABS: CLARITY,URINE CLEAR (Clear); COLOR,URINE YELLOW (Yellow); GLUCOSE, URINE NEGATIVE (Neg); KETONES,URINE NEGATIVE (Neg); LEUKOCYTE ESTERASE ,URINE NEGATIVE (Neg); NITRITES, URINE NEGATIVE (Neg); OCCULT BLOOD,URINE NEGATIVE (Neg); PH,URINE 5.5 (4.8-8.0); PROTEIN,URINE NEGATIVE (Neg); UROBILINOGEN,URINE 0.2 E.U/dL (0.2-1.0)
[2020-05-24 11:25] LABS: UA COLLECTION TYPE CLN CATCH MIDSTREAM
[2020-05-24 11:37] LABS: ALANINE AMINOTRANSFERASE 18 U/L (12-78); ALBUMIN 3.6 G/DL (3.4-5.0); ALBUMIN/GLOBULIN RATIO 0.9 (1.1-1.5); ALKALINE PHOSPHATASE 101 IU/L (46-116); ANION GAP 9 (8-16); ASPARTATE AMINO TRANSFERASE 16 U/L (10-37); BILIRUBIN,TOTAL 0.3 MG/DL (0.1-1.0); BLOOD UREA NITROGEN 13 MG/DL (7-18); BUN/CREATININE RATIO 17.3 (6.6-38.0); CALCIUM 8.6 MG/DL (8.5-10.1); CHLORIDE 108 MMOL/L (99-107); CHOL/HDL RATIO 3.6 (0.00-4.99); CHOLESTEROL 186 MG/DL (0-200); CREATININE 0.75 MG/DL (0.40-0.90); GLUCOSE 84 MG/DL (70-104); HDL CHOLESTEROL 51 MG/DL (35-60); LDL CHOLESTEROL 121 MG/DL (50-100); POTASSIUM 3.8 MMOL/L (3.5-5.1); SODIUM 141 MMOL/L (135-145); TOTAL CARBON DIOXIDE 24.1 MMOL/L (24-32); TOTAL PROTEIN 7.6 G/DL (6.4-8.2); TRIGLYCERIDES 87 MG/DL (20-135); eGFR 83 ML/MIN
[2020-05-24 12:06] LABS: % IRON SATURATION 4 % (11-46); IRON 21 UG/DL (49-151); TOTAL IRON BINDING CAPACITY 478 UG/DL (259-388)
[2020-05-27] MEDS ORDERED: VITAMIN D3 PO (11:42)
[2020-05-27] MEDS ORDERED: IRON PO (11:42)
[2020-05-27] MEDS ORDERED: CYAN250010 PO (11:42)
== END 2020-05-24 23:59 | disposition home or self-care (01) ==
LOC: LAB 09:20
PROVIDERS: ATTEND Family Medicine
DX: Z00.00 Encounter for general adult medical examination without abnormal findings (principal)
CPT/HCPCS: 80053; 80061; 81003; 82306; 82607; 82746; 83540; 83550; 84439; 84443; 85025

== ENCOUNTER → 2020-05-28 | Outpatient (CLI) | payer BC ==
[~2020-05-28] MED LIST changes: +CHOL10006 PO; +CYAN250010 PO; +FERR325T28 PO; +IRON PO; -IRON-32 PO; -PANT40TA54 PO; -PER5325T PO; +VITAMIN D3 PO
== END | disposition home or self-care (01) ==
LOC: RAD 10:59
PROVIDERS: ATTEND Family Medicine
DX: I70.0 Atherosclerosis of aorta (principal); R05 Cough
CPT/HCPCS: 71046

== ENCOUNTER 2020-05-30 05:43 | Inpatient (IN) | payer BC ==
[2020-05-30] VITALS (24 sets, daily range): BP systolic 124–162; BP diastolic 82–108
[~2020-05-30] VITALS: Ht 154.9 cm; Wt 66.2 kg
[~2020-05-30 05:43] MED LIST changes: +DOCUMENT DATE & TIME OF BETA-BLOCKER PO ONE; -IRON PO; -VITAMIN D3 PO; +ceFOXitin 2GM-NS 100mL ADDvant 100 ML IV ONE; +famotidine 20mg tablet PO ONE; +ringers solution, lacted 1,000 ML IV SCH
[2020-05-30] MEDS ORDERED: LIDOcaine 1% (10mg/ml) 2ml vial ONE (06:22)
[2020-05-30] MEDS ORDERED: vasoPRESSIN 20 units/ml inj. ONE (06:54)
[2020-05-30 07:05] LABS: BASOPHILS # (AUTO) 0.1 X10'3 (0-0.2); BASOPHILS % (AUTO) 1.1 % (0-1); EOSINOPHILS # (AUTO) 0.4 X10'3 (0-0.9); EOSINOPHILS % (AUTO) 5.9 % (0-6); LYMPHOCYTES # (AUTO) 2.1 X10'3 (1.1-4.8); LYMPHOCYTES % (AUTO) 31.3 % (21-51); MEAN CORPUSCULAR HEMOGLOBIN 25.7 PG (27.0-31.0); MEAN CORPUSCULAR HGB CONC 32.9 g/dL (33.0-36.5); MONOCYTES # (AUTO) 0.6 X10'3 (0-0.9); MONOCYTES % (AUTO) 8.7 % (2-12); NEUTROPHILS # (AUTO) 3.6 X10'3 (1.8-7.7); PRE OP HEMATOCRIT 31.1 % (35.0-45.0); PRE OP PLATELET COUNT 301 X10'3 (140-440); RED BLOOD COUNT 3.99 X10'6 (4.20-5.60); RED CELL DISTRIBUTION WIDTH 19.7 % (11.5-14.5)
[2020-05-30 07:08] LABS: PRE OP HEMOGLOBIN 10.3 g/dL (12.0-16.0)
[2020-05-30 07:18] LABS: PREOP HCG, QL SERUM NEGATIVE (NEGATIVE)
[2020-05-30] MEDS ORDERED: midazolam 2 mg/2 ml injection ONE (07:18)
[2020-05-30] MEDS ORDERED: fentaNYL /PF 50mcg/ml 5ml ampule ONE (07:18)
[2020-05-30] MEDS ORDERED: BUPIVACAINE liposomal/PF 13.3 MG/ML vial IM ONE (07:23)
[2020-05-30] MEDS ORDERED: sevoflurane 250ml liquid IH ONE (07:24)
[2020-05-30] MEDS ORDERED: BUPIVAcaine/PF 2.5mg/ml (0.25%) 10ml vial ONE (07:24)
[2020-05-30] MEDS ORDERED: acetaminophen 1000 MG/100ml vial IV ONE (07:24)
[2020-05-30 07:42] LABS: ALBUMIN 3.7 G/DL (3.4-5.0); ALBUMIN/GLOBULIN RATIO 0.9 (1.1-1.5); ALKALINE PHOSPHATASE 103 IU/L (46-116); BLOOD UREA NITROGEN 15 MG/DL (7-18); BUN/CREATININE RATIO 19.5 (6.6-38.0); CALCIUM 8.5 MG/DL (8.5-10.1); CHLORIDE 108 MMOL/L (99-107); CREATININE 0.77 MG/DL (0.40-0.90); PRE OP ALT 16 U/L (30-65); PRE OP ANION GAP 9 (8-16); PRE OP AST 12 U/L (10-37); PRE OP BILIRUB, TOTAL 0.1 MG/DL (0.0-1.0); PRE OP GLUCOSE 91 MG/DL (70-104); PRE OP POTASSIUM 3.6 MMOL/L (3.4-5.1); PRE OP SODIUM 142 MMOL/L (135-145); TOTAL CARBON DIOXIDE 24.9 MMOL/L (24-32); TOTAL PROTEIN 7.6 G/DL (6.4-8.2); eGFR 81 ML/MIN
[2020-05-30] MEDS ORDERED: propofol inj 20 ML IV ONE (07:54)
[2020-05-30] MEDS ORDERED: LIDOcaine 2% (20mg/ml) 5ml vial ONE (07:54)
[2020-05-30] MEDS ORDERED: rocuronium 10mg/ml inj IV ONE (07:55)
[2020-05-30] MEDS ORDERED: dexamethasone sod phosphate 4mg/ml inj. ONE (07:55)
[2020-05-30] MEDS ORDERED: ondansetron/PF 4mg/2ml inj ONE (07:55)
[2020-05-30 08:00] LABS: LARGE PLATELETS FEW; PLATELET ESTIMATE NORMAL
[2020-05-30 08:01] LABS: ANISOCYTOSIS 2+; MICROCYTOSIS 1+; POLYCHROMASIA 1+
[2020-05-30] MEDS ORDERED: labetalol 20mg/4ml (5mg/ml) syringe IV PRN (08:30)
[2020-05-30] MEDS ORDERED: HYDROmorphone/PF 0.2 MG/ML SYRINGE IV PRN ×2 (08:30)
[2020-05-30] MEDS ORDERED: proCHLORperazine 10 MG/2 ml inj IV PRN (08:30)
[2020-05-30] MEDS ORDERED: ondansetron/PF 4mg/2ml inj IV PRN ×2 (08:30→10:15)
[2020-05-30] MEDS ORDERED: ringers solution, lacted 1,000 ML IV SCH (08:30)
[2020-05-30] MEDS ORDERED: hydrALAZINE 20mg/ml inj. IV PRN (08:30)
[2020-05-30] MEDS ORDERED: meperidine/PF 25mg/ml syringe IV PRN ×3 (08:30)
[2020-05-30] MEDS ORDERED: 0.9 % SODIUM CHLORIDE 10 ML VIAL ONE (08:32)
[2020-05-30] MEDS ORDERED: ePHEDrine 50MG/ML INJ. ONE (08:33)
[2020-05-30] MEDS ORDERED: fluoroscein sod 10% (100mg/ml) 5ml vial ONE (09:40)
[2020-05-30] MEDS ORDERED: neostigmine methylsulfate 1 MG/ML 10ml vial ONE (09:49)
[2020-05-30] MEDS ORDERED: glycopyrrolate 0.2mg/ml inj ONE (09:49)
[2020-05-30] MEDS ORDERED: mag hydrox/Alum hydrox/simeth 30ml oral suspension PO PRN (10:15)
[2020-05-30] MEDS ORDERED: normal saline 500ML IV soln IV PRN (10:15)
[2020-05-30] MEDS ORDERED: diphenhydrAMINE 50 mg/ml inj IV PRN (10:15)
[2020-05-30] MEDS ORDERED: CADD PCA waste documentation MC PRN (10:15)
[2020-05-30] MEDS ORDERED: temazepam 15mg capsule PO PRN (10:15)
[2020-05-30] MEDS ORDERED: oxyCODONE/APAP 5-325mg tablet PO PRN ×2 (10:15)
[2020-05-30] MEDS ORDERED: magnesium hydroxide 30ml (MOM) UD suspension PO PRN (10:15)
[2020-05-30] MEDS ORDERED: naloxone 0.4 mg/ml inj IV PRN (10:15)
[2020-05-30] MEDS ORDERED: LORazepam 2 mg/ml vial IV PRN (10:15)
--- NOTE | 2020-05-30 10:16 | NUR ---
Received from OR via SURGICAL BED , accompanied by Anesthesiologist FABIOLA and report given by Anesthesiolgist. PATIENT WITH LOW ABDOMINAL ISLAND DRESSING THAT IS CDI. VSS. DENIES PAIN CURRENTLY. 10L MASK ON IWTH 100% SATURATIONS. SCDS DONNED UPON ARRIVAL. REN CATHETER IN PLACE WITH FLOUROSINE PRESENT IN TUBING. Addendum: 05/30/20 at 1023 by Rodo Blankenship RN, RN Amended: Links added.
[2020-05-30] MEDS: ketorolac trometh. 30mg/ml inj. IV PRN ×2 (11:23→17:33)
[2020-05-30] MEDS: HYDROmorphone/NS 1 mg/ml CADD 50 ML IV SCH ×7 (11:33→23:00)
--- NOTE | 2020-05-30 12:36 | NUR ---
ALL CRITERIA FOR TRANSFER TO THE FLOOR HAS BEEN ACHIEVED. REPORT GIVEN AND ALL QUESTIONS ANSWERED, VSS. BED LOW 2 RAILS UP, CALL LIGHT PRESENT AND PATIENT HOOKED UP TO ALL LINES AND VSS. PATIENTS RN PRESENT TO ACCEPT CARE. ALL DRESSINGS CDI. FRANCES WOOTEN TO ACCEPT PATIENT. VSS. Addendum: 05/30/20 at 1302 by Rodo Sykes - JESUS RN Amended: Links added.
[2020-05-30] MEDS: simethicone 80mg chew tab PO SCH ×2 (13:00→17:21)
--- NOTE | 2020-05-30 13:42 | NUR ---
EKG read by Dr. Gates.
[2020-05-30] MEDS: ringers solution, lacted 1,000 ML IV SCH ×3 (14:36→20:14)
[2020-05-30] MEDS ORDERED: proCHLORperazine 10 MG/2 ml inj IV ONE (18:05)
--- NOTE | 2020-05-30 18:36 | NUR ---
Problems reprioritized. Patient report given, questions answered & plan of care reviewed with JESUS Napoles.
--- NOTE | 2020-05-30 18:38 | NUR ---
Patient in room [facility]ISIT[facility] 356. I have received report from FRANCES LEE and had the opportunity to ask questions and assume patient care.
[2020-05-30] MEDS ORDERED: docusate sod 100mg capsule PO SCH (20:00)
[2020-05-30] MEDS: ferrous sulfate 325mg tablet PO SCH (20:06)
[2020-05-30] MEDS: sennosides/docusate sodium tablet PO SCH (20:06)
[2020-05-30] MEDS: docusate sod 100mg capsule PO SCH (20:07)
[2020-05-30] MEDS: carvedilol 6.25mg tablet PO SCH (20:07)
--- NOTE | 2020-05-30 22:00 | NUR ---
Krys pad changed minimal drainage, self krys/cath care. Pt needing minimal assist. Pt up to walk 100ft w/standby x1. Had 100ml of green emesis. Addendum: 05/30/20 at 2212 by Julee White RN Amended: Links added.
[2020-05-31] VITALS: BP 134/80
[2020-05-31] MEDS: HYDROmorphone/NS 1 mg/ml CADD 50 ML IV SCH ×2 (01:00→03:00)
--- NOTE | 2020-05-31 04:06 | NUR ---
NURSING STAFFING COORDINATOR DISCONTINUED
[2020-05-31] MEDS: ringers solution, lacted 1,000 ML IV SCH (04:23)
--- NOTE | 2020-05-31 04:28 | NUR ---
FC discontinued Addendum: 05/31/20 at 0429 by Yesika Cornell RN Amended: Links added.
[2020-05-31 04:33] VITALS: BP 144/84
--- NOTE | 2020-05-31 04:33 | NUR ---
SALVAGE ENGINEER DISCONTINUED Addendum: 05/31/20 at 0433 by Yesika Cornell RN Amended: Links added.
[2020-05-31 06:11] LABS: BASOPHILS % (AUTO) 0.3 % (0-1); EOSINOPHILS % (AUTO) 0 % (0-6); HEMATOCRIT 29.7 % (35.0-45.0); HEMOGLOBIN 9.7 g/dl (12.0-16.0); LYMPHOCYTES % (AUTO) 8.2 % (21-51); MEAN CORPUSCULAR HEMOGLOBIN 25.9 PG (27.0-31.0); MEAN CORPUSCULAR HGB CONC 32.6 g/dL (33.0-36.5); MEAN CORPUSCULAR VOLUME 79.5 FL (78-98); MONOCYTES # (AUTO) 0.8 X10'3 (0-0.9); MONOCYTES % (AUTO) 6.5 % (2-12); PLATELET COUNT 264 X10'3 (140-440); RED BLOOD COUNT 3.73 X10'6 (4.20-5.60); RED CELL DISTRIBUTION WIDTH 20.3 % (11.5-14.5); WHITE BLOOD COUNT 11.8 X10'3 (4.5-11.0)
--- NOTE | 2020-05-31 06:17 | NUR ---
Problems reprioritized. Patient report given, questions answered & plan of care reviewed with FRANCES LEE.
[2020-05-31 06:20] LABS: ALBUMIN 2.8 G/DL (3.4-5.0); ANION GAP 6 (8-16); BLOOD UREA NITROGEN 11 MG/DL (7-18); BUN/CREATININE RATIO 16.4 (6.6-38.0); CALCIUM 8.2 MG/DL (8.5-10.1); CHLORIDE 108 MMOL/L (99-107); CREATININE 0.67 MG/DL (0.40-0.90); GLUCOSE 112 MG/DL (70-104); POTASSIUM 3.9 MMOL/L (3.5-5.1); SODIUM 141 MMOL/L (135-145); TOTAL CARBON DIOXIDE 26.6 MMOL/L (24-32); eGFR > 90 ML/MIN
--- NOTE | 2020-05-31 06:26 | NUR ---
Patient in room [facility] 356. I have received report from JESUS Napoles and had the opportunity to ask questions and assume patient care.
[2020-05-31 06:46] LABS: MICROCYTOSIS 1+; PLATELET ESTIMATE NORMAL; TOTAL CELLS COUNTED 100
[2020-05-31 06:47] LABS: ANISOCYTOSIS 3+; HYPOCHROMASIA 1+; POLYCHROMASIA 1+
[2020-05-31 07:00] VITALS: BP 154/96
[2020-05-31] MEDS: ferrous sulfate 325mg tablet PO SCH ×2 (08:22→19:24)
[2020-05-31] MEDS: sennosides/docusate sodium tablet PO SCH ×2 (08:22→19:22)
[2020-05-31] MEDS: vitamin D (cholecalciferol) 1,000 unit tablet PO SCH (08:22)
[2020-05-31] MEDS: cyanocobalamin 500mcg tablet PO SCH (08:22)
[2020-05-31] MEDS: docusate sod 100mg capsule PO SCH ×2 (08:22→19:22)
[2020-05-31] MEDS: ketorolac trometh. 30mg/ml inj. IV PRN ×2 (08:22→16:25)
[2020-05-31] MEDS: simethicone 80mg chew tab PO SCH ×3 (08:22→18:05)
[2020-05-31] MEDS: carvedilol 6.25mg tablet PO SCH ×2 (08:22→19:24)
[2020-05-31] MEDS ORDERED: benzocaine/menthol oral lozeng 1 EACH BOX MM PRN (08:30)
[2020-05-31 11:20] VITALS: BP 142/83
--- NOTE | 2020-05-31 18:03 | NUR ---
Problems reprioritized. Patient report given, questions answered & plan of care reviewed with JESUS Napoles.
--- NOTE | 2020-05-31 19:03 | NUR ---
Patient in room [facility]ISIT[facility] 356. I have received report from FRANCES LEE and had the opportunity to ask questions and assume patient care.
[2020-05-31 20:33] VITALS: BP 169/79
[2020-06-01 00:03] VITALS: BP 136/80
[2020-06-01 06:21] LABS: BASOPHILS % (AUTO) 0.4 % (0-1); EOSINOPHILS # (AUTO) 0.2 X10'3 (0-0.9); EOSINOPHILS % (AUTO) 2.9 % (0-6); HEMATOCRIT 27.1 % (35.0-45.0); HEMOGLOBIN 8.9 g/dl (12.0-16.0); LYMPHOCYTES # (AUTO) 1.7 X10'3 (1.1-4.8); LYMPHOCYTES % (AUTO) 27.1 % (21-51); MEAN CORPUSCULAR HGB CONC 32.7 g/dL (33.0-36.5); MEAN CORPUSCULAR VOLUME 79.4 FL (78-98); MEAN PLATELET VOLUME 8.2 FL (7.4-10.4); MONOCYTES # (AUTO) 0.6 X10'3 (0-0.9); NEUTROPHILS # (AUTO) 3.8 X10'3 (1.8-7.7); NEUTROPHILS % (AUTO) 59.6 % (42-75); PLATELET COUNT 235 X10'3 (140-440); RED BLOOD COUNT 3.41 X10'6 (4.20-5.60); RED CELL DISTRIBUTION WIDTH 21.5 % (11.5-14.5); WHITE BLOOD COUNT 6.3 X10'3 (4.5-11.0)
--- NOTE | 2020-06-01 06:32 | NUR ---
Problems reprioritized. Patient report given, questions answered & plan of care reviewed with SAVAGE LEE.
--- NOTE | 2020-06-01 06:33 | NUR ---
Patient in room [facility] 356. I have received report from JESUS Napoles and had the opportunity to ask questions and assume patient care.
[2020-06-01 07:23] LABS: ANISOCYTOSIS 3+; LARGE PLATELETS FEW; MICROCYTOSIS 1+; PLATELET ESTIMATE NORMAL
[2020-06-01 07:47] VITALS: BP 124/86
[2020-06-01] MEDS: ferrous sulfate 325mg tablet PO SCH (08:00)
[2020-06-01] MEDS: sennosides/docusate sodium tablet PO SCH (08:00)
[2020-06-01] MEDS: docusate sod 100mg capsule PO SCH (08:16)
[2020-06-01] MEDS: carvedilol 6.25mg tablet PO SCH (08:17)
[2020-06-01] MEDS: simethicone 80mg chew tab PO SCH (08:17)
[2020-06-01] MEDS: cyanocobalamin 500mcg tablet PO SCH (08:18)
[2020-06-01] MEDS: vitamin D (cholecalciferol) 1,000 unit tablet PO SCH (08:18)
--- NOTE | 2020-06-01 11:14 | NUR ---
Patient is alert and oriented with no complaints. Discussed with patient discharge instructions and patient verbalizes understanding of teaching. Patient dc'd home with all personal belongings, abd binder in place. Patient to transport home.
== END 2020-06-01 11:15 | disposition home or self-care (01) | DRG 743 ==
LOC: PAS IN 05:43 → UNDOADMIN 05:43 → EDSTATUS 07:30 → PAS IN 10:14 → SUR 3N 12:38 → UNDODISIN 06-01 11:15
PROVIDERS: ADMIT Obstetrics & Gynecology; ATTEND Obstetrics & Gynecology
PROC: 0UT70ZZ Resection of Bilateral Fallopian Tubes, Open Approach (ICD-10-PCS; 2020-05-30)
PROC: 0TJB8ZZ Inspection of Bladder, Via Natural or Artificial Opening Endoscopic (ICD-10-PCS; 2020-05-30)
PROC: 0UT90ZZ Resection of Uterus, Open Approach (ICD-10-PCS; principal; 2020-05-30 07:24)
DX: D25.9 Leiomyoma of uterus, unspecified (principal); N92.0 Excessive and frequent menstruation with regular cycle; D64.9 Anemia, unspecified
CPT/HCPCS: Z7506; Z7508; 36415; 80048; 80053; 84703; 85007; 85008; 85025; 86885; 86900; 86901; 93005; A4355; A4618; A6250; A7000; C1758; C9290; G0378; J0131; J0694; J0780; J1100; J1170; J1885; J2001; J2175; J2250; J2405; J2704; J2710; J3010; J3490; J7030; J7120

== ENCOUNTER 2020-06-17 04:53 | Emergency (ER) | payer BC ==
[~2020-06-17] VITALS: Ht 154.9 cm; Wt 65.5 kg
[~2020-06-17 04:53] MED LIST changes: -DOCUMENT DATE & TIME OF BETA-BLOCKER PO ONE; -ceFOXitin 2GM-NS 100mL ADDvant 100 ML IV ONE; -famotidine 20mg tablet PO ONE; -ringers solution, lacted 1,000 ML IV SCH
[2020-06-17 05:30] LABS: CLARITY,URINE CLEAR (Clear); COLOR,URINE YELLOW (Yellow); GLUCOSE, URINE NEGATIVE (Neg); KETONES,URINE NEGATIVE (Neg); LEUKOCYTE ESTERASE ,URINE NEGATIVE (Neg); NITRITES, URINE NEGATIVE (Neg); OCCULT BLOOD,URINE NEGATIVE (Neg); PROTEIN,URINE NEGATIVE (Neg); UROBILINOGEN,URINE 0.2 E.U/dL (0.2-1.0)
[2020-06-17 05:33] LABS: BASOPHILS # (AUTO) 0.1 X10'3 (0-0.2); BASOPHILS % (AUTO) 1.5 % (0-1); EOSINOPHILS # (AUTO) 0.4 X10'3 (0-0.9); EOSINOPHILS % (AUTO) 7.4 % (0-6); HEMATOCRIT 35.8 % (35.0-45.0); HEMOGLOBIN 11.5 g/dl (12.0-16.0); LYMPHOCYTES # (AUTO) 1.9 X10'3 (1.1-4.8); LYMPHOCYTES % (AUTO) 31.5 % (21-51); MEAN CORPUSCULAR HEMOGLOBIN 26.2 PG (27.0-31.0); MEAN CORPUSCULAR HGB CONC 32.1 g/dL (33.0-36.5); MEAN CORPUSCULAR VOLUME 81.6 FL (78-98); MEAN PLATELET VOLUME 7.6 FL (7.4-10.4); MONOCYTES # (AUTO) 0.4 X10'3 (0-0.9); NEUTROPHILS # (AUTO) 3.2 X10'3 (1.8-7.7); NEUTROPHILS % (AUTO) 53.6 % (42-75); PLATELET COUNT 358 X10'3 (140-440); RED BLOOD COUNT 4.39 X10'6 (4.20-5.60); RED CELL DISTRIBUTION WIDTH 23.9 % (11.5-14.5); WHITE BLOOD COUNT 5.9 X10'3 (4.5-11.0)
[2020-06-17 05:36] LABS: UA COLLECTION TYPE NON-SPECIFIED
[2020-06-17 05:48] LABS: ALANINE AMINOTRANSFERASE 19 U/L (12-78); ALBUMIN 3.3 G/DL (3.4-5.0); ALBUMIN/GLOBULIN RATIO 0.8 (1.1-1.5); ALKALINE PHOSPHATASE 89 IU/L (46-116); ANION GAP 7 (8-16); ASPARTATE AMINO TRANSFERASE 8 U/L (10-37); BILIRUBIN,TOTAL 0.2 MG/DL (0.1-1.0); BLOOD UREA NITROGEN 13 MG/DL (7-18); BUN/CREATININE RATIO 18.8 (6.6-38.0); CHLORIDE 104 MMOL/L (99-107); CREATININE 0.69 MG/DL (0.40-0.90); GLUCOSE 97 MG/DL (70-104); LIPASE 83 U/L (73-393); POTASSIUM 3.5 MMOL/L (3.5-5.1); SODIUM 139 MMOL/L (135-145); TOTAL CARBON DIOXIDE 28.4 MMOL/L (24-32); TOTAL PROTEIN 7.4 G/DL (6.4-8.2); eGFR > 90 ML/MIN
[2020-06-17 05:49] LABS: ANISOCYTOSIS 3+; MICROCYTOSIS 1+; PLATELET ESTIMATE NORMAL; STOMATOCYTES FEW
[2020-06-17] MEDS ORDERED: ketorolac trometh. 30mg/ml inj. IV ONE (06:40)
[2020-06-17 07:50] VITALS: BP 147/81
== END 2020-06-17 08:26 | disposition home or self-care (01) ==
LOC: ER 04:53
DX: N83.202 Unspecified ovarian cyst, left side (principal); K59.00 Constipation, unspecified; I10 Essential (primary) hypertension; Z87.442 Personal history of urinary calculi; Z87.898 Personal history of other specified conditions; Z90.710 Acquired absence of both cervix and uterus; Z86.2 Personal history of diseases of the blood and blood-forming organs and certain disorders involving the immune mechanism; Z90.49 Acquired absence of other specified parts of digestive tract; Z88.6 Allergy status to analgesic agent; Z88.1 Allergy status to other antibiotic agents; Z88.8 Allergy status to other drugs, medicaments and biological substances; Z79.899 Other long term (current) drug therapy
CPT/HCPCS: 36415; 74176; 80053; 81003; 83690; 85008; 85025; 96374; 99284; J1885

== ENCOUNTER 2021-12-26 09:36 | Outpatient (CLI) | payer BC ==
[2021-12-26 11:13] LABS: BASOPHILS # (AUTO) 0.1 X10'3 (0-0.2); BASOPHILS % (AUTO) 1.2 % (0-1); EOSINOPHILS # (AUTO) 0.4 X10'3 (0-0.9); HEMATOCRIT 40.3 % (35.0-45.0); HEMOGLOBIN 13.8 g/dl (12.0-16.0); LYMPHOCYTES # (AUTO) 1.9 X10'3 (1.1-4.8); LYMPHOCYTES % (AUTO) 31.3 % (21-51); MEAN CORPUSCULAR HEMOGLOBIN 30.9 PG (27.0-31.0); MEAN CORPUSCULAR HGB CONC 34.1 g/dL (33.0-36.5); MEAN CORPUSCULAR VOLUME 90.5 FL (78-98); MEAN PLATELET VOLUME 8.3 FL (7.4-10.4); MONOCYTES # (AUTO) 0.4 X10'3 (0-0.9); MONOCYTES % (AUTO) 6.6 % (2-12); NEUTROPHILS # (AUTO) 3.2 X10'3 (1.8-7.7); NEUTROPHILS % (AUTO) 53.9 % (42-75); PLATELET COUNT 270 X10'3 (140-440); RED BLOOD COUNT 4.45 X10'6 (4.20-5.60); RED CELL DISTRIBUTION WIDTH 13.5 % (11.5-14.5)
[2021-12-26 11:25] LABS: CLARITY,URINE CLEAR (Clear); COLOR,URINE YELLOW (Yellow); GLUCOSE, URINE NEGATIVE (Neg); KETONES,URINE NEGATIVE (Neg); LEUKOCYTE ESTERASE ,URINE NEGATIVE (Neg); NITRITES, URINE NEGATIVE (Neg); OCCULT BLOOD,URINE NEGATIVE (Neg); PH,URINE 5.5 (4.8-8.0); PROTEIN,URINE NEGATIVE (Neg); UROBILINOGEN,URINE 0.2 E.U/dL (0.2-1.0)
[2021-12-26 11:28] LABS: UA COLLECTION TYPE CLN CATCH MIDSTREAM
[2021-12-26 11:38] LABS: ALANINE AMINOTRANSFERASE 20 U/L (12-78); ALBUMIN 3.7 G/DL (3.4-5.0); ALKALINE PHOSPHATASE 87 IU/L (46-116); ANION GAP 9 (8-16); ASPARTATE AMINO TRANSFERASE 15 U/L (10-37); BILIRUBIN,TOTAL 0.4 MG/DL (0.1-1.0); BLOOD UREA NITROGEN 11 MG/DL (7-18); BUN/CREATININE RATIO 14.9 (6.6-38.0); CALCIUM 8.7 MG/DL (8.5-10.1); CHLORIDE 108 MMOL/L (99-107); CHOL/HDL RATIO 3.8 (0.00-4.99); CHOLESTEROL 187 MG/DL (0-200); CREATININE 0.74 MG/DL (0.40-0.90); GLUCOSE 87 MG/DL (70-104); HDL CHOLESTEROL 49 MG/DL (35-60); LDL CHOLESTEROL 118 MG/DL (50-100); POTASSIUM 3.9 MMOL/L (3.5-5.1); SODIUM 143 MMOL/L (135-145); TOTAL CARBON DIOXIDE 26.5 MMOL/L (24-32); TOTAL PROTEIN 7.4 G/DL (6.4-8.2); TRIGLYCERIDES 128 MG/DL (20-135); eGFR 84 ML/MIN
[2021-12-29 18:36] LABS: VITAMIN D, 1,25 DIHYDROXY 79.8 pg/mL (24.8-81.5)
== END 2021-12-26 23:59 | disposition home or self-care (01) ==
LOC: LAB 09:36
PROVIDERS: ATTEND Family Medicine
DX: Z00.00 Encounter for general adult medical examination without abnormal findings (principal); E55.9 Vitamin D deficiency, unspecified; R05.9 Cough, unspecified
CPT/HCPCS: 36415; 71046; 80053; 80061; 81003; 82607; 82652; 82746; 84439; 84443; 85025

== ENCOUNTER 2022-02-11 10:31 | Outpatient (CLI) | payer BC | END 2022-02-11 23:59 | disposition home or self-care (01) | LOC: 64 CT 10:31 | PROVIDERS: ATTEND Family Medicine | DX: J32.0 Chronic maxillary sinusitis (principal); J34.89 Other specified disorders of nose and nasal sinuses | CPT/HCPCS: 70486 ==

== ENCOUNTER 2022-06-12 18:04 | Emergency (ER) | payer BC ==
[~2022-06-12] VITALS: Ht 154.9 cm; Wt 68.1 kg
[2022-06-12] MEDS ORDERED: LORazepam 2 mg/ml vial IV ONE (18:25)
[2022-06-12 18:32] LABS: BASOPHILS % (AUTO) 0.5 % (0-1); EOSINOPHILS # (AUTO) 0.3 X10'3 (0-0.9); EOSINOPHILS % (AUTO) 3.6 % (0-6); HEMATOCRIT 41.7 % (35.0-45.0); HEMOGLOBIN 14.3 g/dl (12.0-16.0); LYMPHOCYTES # (AUTO) 2.2 X10'3 (1.1-4.8); LYMPHOCYTES % (AUTO) 25.8 % (21-51); MEAN CORPUSCULAR HEMOGLOBIN 31.2 PG (27.0-31.0); MEAN CORPUSCULAR HGB CONC 34.4 g/dL (33.0-36.5); MEAN CORPUSCULAR VOLUME 90.7 FL (78-98); MEAN PLATELET VOLUME 8.2 FL (7.4-10.4); MONOCYTES # (AUTO) 0.5 X10'3 (0-0.9); MONOCYTES % (AUTO) 5.5 % (2-12); NEUTROPHILS # (AUTO) 5.5 X10'3 (1.8-7.7); NEUTROPHILS % (AUTO) 64.6 % (42-75); PLATELET COUNT 254 X10'3 (140-440); RED CELL DISTRIBUTION WIDTH 13.6 % (11.5-14.5); WHITE BLOOD COUNT 8.5 X10'3 (4.5-11.0)
[2022-06-12 18:36] VITALS: BP 167/89
[2022-06-12 18:38] LABS: D-DIMER 0.29 MG/L FEU (0-0.50)
[2022-06-12 18:42] LABS: ALANINE AMINOTRANSFERASE 25 U/L (12-78); ALBUMIN 3.8 G/DL (3.4-5.0); ALKALINE PHOSPHATASE 105 IU/L (46-116); ANION GAP 9 (8-16); ASPARTATE AMINO TRANSFERASE 16 U/L (10-37); BILIRUBIN,TOTAL 0.2 MG/DL (0.1-1.0); BLOOD UREA NITROGEN 15 MG/DL (7-18); BUN/CREATININE RATIO 19.2 (6.6-38.0); CALCIUM 9.2 MG/DL (8.5-10.1); CHLORIDE 105 MMOL/L (99-107); CREATININE 0.78 MG/DL (0.40-0.90); GLUCOSE 117 MG/DL (70-104); POTASSIUM 3.4 MMOL/L (3.5-5.1); SODIUM 140 MMOL/L (135-145); TOTAL CARBON DIOXIDE 26.5 MMOL/L (24-32); TOTAL PROTEIN 7.7 G/DL (6.4-8.2); eGFR 79 ML/MIN
[2022-06-12 18:49] LABS: MAGNESIUM 2.1 MG/DL (1.5-2.4)
--- NOTE | 2022-06-12 19:00 | NUR ---
VERIFIED MARINE CARGO INSPECTOR GENERAL ASESSMENT
[2022-06-12] MEDS ORDERED: POTASSIUM BICARB 20meq eff tab 20 MEQ TABLET.EFF PO ONE (19:05)
== END 2022-06-12 21:37 | disposition home or self-care (01) ==
LOC: ER 18:05
DX: R07.89 Other chest pain (principal); I10 Essential (primary) hypertension; Z88.1 Allergy status to other antibiotic agents; Z88.5 Allergy status to narcotic agent; Z90.49 Acquired absence of other specified parts of digestive tract; Z90.710 Acquired absence of both cervix and uterus
CPT/HCPCS: 36415; 71045; 80053; 83735; 83880; 84484; 85025; 85379; 93005; 96374; 99285; J2060

== ENCOUNTER 2022-06-19 07:33 | Outpatient (CLI) | payer BC | END 2022-06-19 23:59 | disposition home or self-care (01) | LOC: RAD 07:33 | PROVIDERS: ATTEND Family Medicine | DX: M54.2 Cervicalgia (principal); I10 Essential (primary) hypertension | CPT/HCPCS: 72141; 93975 ==

== ENCOUNTER 2022-08-28 08:42 | Outpatient (CLI) | payer BC | END 2022-08-28 23:59 | disposition home or self-care (01) | LOC: RAD 08:42 | PROVIDERS: ATTEND Family Medicine | DX: M25.512 Pain in left shoulder (principal) | CPT/HCPCS: 73221 ==

== ENCOUNTER 2022-10-21 08:40 | Outpatient (CLI) | payer BC ==
[2022-10-21 09:11] LABS: CLARITY,URINE CLOUDY (Clear); COLOR,URINE YELLOW (Yellow); GLUCOSE, URINE NEGATIVE (Neg); KETONES,URINE NEGATIVE (Neg); LEUKOCYTE ESTERASE ,URINE NEGATIVE (Neg); NITRITES, URINE NEGATIVE (Neg); OCCULT BLOOD,URINE NEGATIVE (Neg); PH,URINE 6.5 (4.8-8.0); PROTEIN,URINE NEGATIVE (Neg); UROBILINOGEN,URINE 0.2 E.U/dL (0.2-1.0)
[2022-10-21 09:19] LABS: UA COLLECTION TYPE CLN CATCH MIDSTREAM
[2022-10-21 09:22] LABS: SQUAMOUS EPITHELIAL CELL,UR FEW /LPF (FEW)
[2022-10-21 09:23] LABS: BASOPHILS % (AUTO) 0.7 % (0-1); EOSINOPHILS # (AUTO) 0.4 X10'3 (0-0.9); EOSINOPHILS % (AUTO) 7.4 % (0-6); HEMATOCRIT 43.4 % (35.0-45.0); HEMOGLOBIN 14.7 g/dl (12.0-16.0); LYMPHOCYTES # (AUTO) 1.6 X10'3 (1.1-4.8); LYMPHOCYTES % (AUTO) 32.2 % (21-51); MEAN CORPUSCULAR HEMOGLOBIN 31.3 PG (27.0-31.0); MEAN CORPUSCULAR HGB CONC 33.9 g/dL (33.0-36.5); MEAN CORPUSCULAR VOLUME 92.3 FL (78-98); MEAN PLATELET VOLUME 8.5 FL (7.4-10.4); MONOCYTES # (AUTO) 0.3 X10'3 (0-0.9); MONOCYTES % (AUTO) 6.5 % (2-12); MUCUS STRANDS MANY /LPF (Neg); NEUTROPHILS # (AUTO) 2.6 X10'3 (1.8-7.7); NEUTROPHILS % (AUTO) 53.2 % (42-75); PLATELET COUNT 233 X10'3 (140-440); RED CELL DISTRIBUTION WIDTH 13.7 % (11.5-14.5)
[2022-10-21 09:24] LABS: HEMOGLOBIN A1C 5.5 % (4.5-6.2); RBC,URINE 0-2 /HPF (0-2); WBC,URINE 0-4 /HPF (0-4)
[2022-10-21 09:25] LABS: BACTERIA,URINE 2+ /HPF (Neg)
[2022-10-21 09:32] LABS: ALANINE AMINOTRANSFERASE 23 U/L (12-78); ALBUMIN/GLOBULIN RATIO 1.1 (1.1-1.5); ALKALINE PHOSPHATASE 130 IU/L (46-116); ANION GAP 9 (8-16); ASPARTATE AMINO TRANSFERASE 16 U/L (10-37); BILIRUBIN,TOTAL 0.4 MG/DL (0.1-1.0); BLOOD UREA NITROGEN 14 MG/DL (7-18); CALCIUM 9.1 MG/DL (8.5-10.1); CHLORIDE 105 MMOL/L (99-107); CHOL/HDL RATIO 3.4 (0.00-4.99); CHOLESTEROL 203 MG/DL (0-200); GLUCOSE 95 MG/DL (70-104); HDL CHOLESTEROL 59 MG/DL (35-60); LDL CHOLESTEROL 126 MG/DL (50-100); POTASSIUM 3.9 MMOL/L (3.5-5.1); SODIUM 143 MMOL/L (135-145); TOTAL CARBON DIOXIDE 29.1 MMOL/L (24-32); TOTAL PROTEIN 7.7 G/DL (6.4-8.2); TRIGLYCERIDES 109 MG/DL (20-135); eGFR 89 ML/MIN
[2022-10-22 16:26] LABS: FSH, SERUM 33.2 mIU/mL (.)
== END 2022-10-21 23:59 | disposition home or self-care (01) ==
LOC: LAB 08:40
PROVIDERS: ATTEND Family Medicine
DX: Z00.00 Encounter for general adult medical examination without abnormal findings (principal)
CPT/HCPCS: 36415; 80053; 80061; 81001; 82306; 82607; 82746; 83001; 83036; 84439; 84443; 85025

== ENCOUNTER 2022-11-26 13:41 | Outpatient (CLI) | payer BC | END 2022-11-26 23:59 | disposition home or self-care (01) | LOC: VAS 13:41 | PROVIDERS: ATTEND Family Medicine | DX: I99.8 Other disorder of circulatory system (principal) | CPT/HCPCS: 93931 ==

== ENCOUNTER 2022-12-22 13:00 | Outpatient (CLI) | payer BC ==
[2022-12-24] MEDS ORDERED: LIDOcaine 2% (20mg/ml) 5ml vial ONE (08:00)
[2022-12-24] MEDS ORDERED: GADOTERATE MEGLUMINE 7.5 MMOL/15 ML VIAL IV ONE (08:00)
[2022-12-24] MEDS ORDERED: iohexol 300 MG/1 ML 50ml polymer ONE (08:00)
== END 2022-12-22 23:59 | disposition home or self-care (01) ==
LOC: EDSTATUS 13:00 → RAD 13:00
PROVIDERS: ATTEND Family Medicine
DX: M75.52 Bursitis of left shoulder (principal); M75.82 Other shoulder lesions, left shoulder; M25.512 Pain in left shoulder
CPT/HCPCS: 73040; 73222; A9579; Q9967

== ENCOUNTER 2023-04-28 15:00 | Outpatient (CLI) | payer BC ==
[2023-04-28 15:39] LABS: BASOPHILS % (AUTO) 0.3 % (0-1); EOSINOPHILS # (AUTO) 0.5 X10'3 (0-0.9); EOSINOPHILS % (AUTO) 7.2 % (0-6); HEMATOCRIT 42.2 % (35.0-45.0); HEMOGLOBIN 14.4 g/dl (12.0-16.0); LYMPHOCYTES % (AUTO) 28.1 % (21-51); MEAN CORPUSCULAR HEMOGLOBIN 31.1 PG (27.0-31.0); MEAN CORPUSCULAR HGB CONC 34.1 g/dL (33.0-36.5); MEAN CORPUSCULAR VOLUME 91.3 FL (78-98); MEAN PLATELET VOLUME 8.6 FL (7.4-10.4); MONOCYTES # (AUTO) 0.5 X10'3 (0-0.9); MONOCYTES % (AUTO) 6.7 % (2-12); NEUTROPHILS # (AUTO) 4.2 X10'3 (1.8-7.7); NEUTROPHILS % (AUTO) 57.7 % (42-75); PLATELET COUNT 210 X10'3 (140-440); RED BLOOD COUNT 4.63 X10'6 (4.20-5.60); RED CELL DISTRIBUTION WIDTH 13.6 % (11.5-14.5); WHITE BLOOD COUNT 7.2 X10'3 (4.5-11.0)
[2023-04-28 15:52] LABS: ALANINE AMINOTRANSFERASE 38 U/L (12-78); ALBUMIN 3.5 G/DL (3.4-5.0); ALBUMIN/GLOBULIN RATIO 0.9 (1.1-1.5); ALKALINE PHOSPHATASE 117 IU/L (46-116); ANION GAP 3 (8-16); ASPARTATE AMINO TRANSFERASE 20 U/L (10-37); BILIRUBIN,TOTAL 0.4 MG/DL (0.1-1.0); BLOOD UREA NITROGEN 12 MG/DL (7-18); BUN/CREATININE RATIO 16.2 (10.0-20.0); CALCIUM 8.8 MG/DL (8.5-10.1); CHLORIDE 106 MMOL/L (99-107); CREATININE 0.74 MG/DL (0.40-0.90); GLUCOSE 85 MG/DL (70-104); LIPASE 32 U/L (16-77); SODIUM 140 MMOL/L (135-145); TOTAL PROTEIN 7.5 G/DL (6.4-8.2); eGFR 83 ML/MIN
== END 2023-04-28 23:59 | disposition home or self-care (01) ==
LOC: LAB 15:00
PROVIDERS: ATTEND Family Medicine
DX: R10.13 Epigastric pain (principal)
CPT/HCPCS: 36415; 80053; 83690; 85025; 85651

== ENCOUNTER → 2023-10-29 | Outpatient (CLI) | payer BC ==
[2023-10-29 11:31] LABS: BASOPHILS # (AUTO) 0.1 X10'3 (0-0.2); EOSINOPHILS # (AUTO) 0.5 X10'3 (0-0.9); EOSINOPHILS % (AUTO) 8.7 % (0-6); HEMATOCRIT 40.9 % (35.0-45.0); HEMOGLOBIN 13.7 g/dl (12.0-16.0); LYMPHOCYTES # (AUTO) 1.8 X10'3 (1.1-4.8); LYMPHOCYTES % (AUTO) 33.7 % (21-51); MEAN CORPUSCULAR HEMOGLOBIN 30.5 PG (27.0-31.0); MEAN CORPUSCULAR HGB CONC 33.6 g/dL (33.0-36.5); MEAN CORPUSCULAR VOLUME 90.7 FL (78-98); MEAN PLATELET VOLUME 8.1 FL (7.4-10.4); MONOCYTES # (AUTO) 0.3 X10'3 (0-0.9); MONOCYTES % (AUTO) 6.5 % (2-12); NEUTROPHILS # (AUTO) 2.7 X10'3 (1.8-7.7); NEUTROPHILS % (AUTO) 50.1 % (42-75); PLATELET COUNT 241 X10'3 (140-440); RED CELL DISTRIBUTION WIDTH 13.4 % (11.5-14.5); WHITE BLOOD COUNT 5.3 X10'3 (4.5-11.0)
[2023-10-29 11:34] LABS: BILIRUBIN,URINE NEGATIVE (Neg); CLARITY,URINE CLEAR (Clear); COLOR,URINE YELLOW (Yellow); GLUCOSE, URINE NEGATIVE (Neg); KETONES,URINE NEGATIVE (Neg); LEUKOCYTE ESTERASE ,URINE NEGATIVE (Neg); NITRITES, URINE NEGATIVE (Neg); OCCULT BLOOD,URINE NEGATIVE (Neg); PROTEIN,URINE NEGATIVE (Neg)
[2023-10-29 11:41] LABS: HEMOGLOBIN A1C 6.1 % (4.5-6.2)
[2023-10-29 11:44] LABS: ALANINE AMINOTRANSFERASE 47 U/L (12-78); ALBUMIN 3.7 G/DL (3.4-5.0); ALBUMIN/GLOBULIN RATIO 0.9 (1.1-1.5); ALKALINE PHOSPHATASE 107 IU/L (46-116); ANION GAP 5 (8-16); ASPARTATE AMINO TRANSFERASE 25 U/L (10-37); BILIRUBIN,TOTAL 0.5 MG/DL (0.1-1.0); BLOOD UREA NITROGEN 10 MG/DL (7-18); BUN/CREATININE RATIO 13.5 (10.0-20.0); CALCIUM 9.1 MG/DL (8.5-10.1); CHLORIDE 106 MMOL/L (99-107); CHOL/HDL RATIO 3.3 (0.00-4.99); CHOLESTEROL 205 MG/DL (0-200); CREATININE 0.74 MG/DL (0.40-0.90); FREE T4 (FREE THYROXINE) 1.13 NG/DL (0.73-1.40); GLUCOSE 91 MG/DL (70-104); HDL CHOLESTEROL 62 MG/DL (35-60); LDL CHOLESTEROL 132 MG/DL (50-100); POTASSIUM 3.9 MMOL/L (3.5-5.1); SODIUM 140 MMOL/L (135-145); TOTAL CARBON DIOXIDE 28.7 MMOL/L (24-32); TOTAL PROTEIN 7.7 G/DL (6.4-8.2); TRIGLYCERIDES 90 MG/DL (20-135); UA COLLECTION TYPE CLN CATCH MIDSTREAM; eGFR 83 ML/MIN
[2023-10-30 09:56] LABS: FSH, SERUM 66.3 mIU/mL (.)
[2023-10-30 16:53] LABS: VITAMIN D, 1,25 DIHYDROXY 64.5 pg/mL (24.8-81.5); VITAMIN D, 25-HYDROXY 40.4 ng/mL (30.0-100.0)
== END | disposition home or self-care (01) ==
LOC: LAB 10:09
PROVIDERS: ATTEND Family Medicine
DX: Z00.00 Encounter for general adult medical examination without abnormal findings (principal)
CPT/HCPCS: 36415; 80053; 80061; 81003; 82306; 82607; 82652; 82746; 83001; 83036; 84439; 84443; 85025

== ENCOUNTER 2023-12-13 13:34 | Emergency (ER) | payer BC ==
[~2023-12-13] VITALS: Ht 154.9 cm; Wt 67.7 kg
[2023-12-13] MEDS: aspirin 81mg tab.chew PO ONE (13:52)
[2023-12-13 13:58] LABS: BASOPHILS # (AUTO) 0.1 X10'3 (0-0.2); EOSINOPHILS # (AUTO) 0.4 X10'3 (0-0.9); EOSINOPHILS % (AUTO) 5.9 % (0-6); HEMATOCRIT 43.5 % (35.0-45.0); HEMOGLOBIN 14.8 g/dl (12.0-16.0); LYMPHOCYTES # (AUTO) 1.7 X10'3 (1.1-4.8); LYMPHOCYTES % (AUTO) 27.8 % (21-51); MEAN CORPUSCULAR HEMOGLOBIN 31.3 PG (27.0-31.0); MEAN CORPUSCULAR HGB CONC 33.9 g/dL (33.0-36.5); MEAN CORPUSCULAR VOLUME 92.3 FL (78-98); MEAN PLATELET VOLUME 8.4 FL (7.4-10.4); MONOCYTES # (AUTO) 0.5 X10'3 (0-0.9); MONOCYTES % (AUTO) 7.9 % (2-12); NEUTROPHILS # (AUTO) 3.5 X10'3 (1.8-7.7); NEUTROPHILS % (AUTO) 56.4 % (42-75); PLATELET COUNT 242 X10'3 (140-440); RED BLOOD COUNT 4.71 X10'6 (4.20-5.60); RED CELL DISTRIBUTION WIDTH 13.8 % (11.5-14.5); WHITE BLOOD COUNT 6.3 X10'3 (4.5-11.0)
[2023-12-13 14:15] LABS: ALANINE AMINOTRANSFERASE 37 U/L (12-78); ALBUMIN 3.9 G/DL (3.4-5.0); ALBUMIN/GLOBULIN RATIO 0.9 (1.1-1.5); ALKALINE PHOSPHATASE 141 IU/L (46-116); ANION GAP 8 (8-16); ASPARTATE AMINO TRANSFERASE 19 U/L (10-37); BILIRUBIN,TOTAL 0.5 MG/DL (0.1-1.0); BLOOD UREA NITROGEN 14 MG/DL (7-18); BUN/CREATININE RATIO 18.7 (10.0-20.0); CALCIUM 9.4 MG/DL (8.5-10.1); CHLORIDE 104 MMOL/L (99-107); CREATININE 0.75 MG/DL (0.40-0.90); GLUCOSE 88 MG/DL (70-104); POTASSIUM 3.8 MMOL/L (3.5-5.1); SODIUM 139 MMOL/L (135-145); TOTAL CARBON DIOXIDE 26.8 MMOL/L (24-32); TOTAL PROTEIN 8.3 G/DL (6.4-8.2); eCRCL 68 ML/MIN; eGFR 82 ML/MIN
[2023-12-13 14:23] LABS: PRO BRAIN NATRIURETIC PEPTIDE 169 PG/ML (0-125)
[2023-12-13 14:50] VITALS: TEMP 98
[2023-12-13 16:13] LABS: LIPASE 31 U/L (16-77); MAGNESIUM 1.9 MG/DL (1.5-2.4)
[2023-12-13 19:07] LABS: D-DIMER 0.31 MG/L FEU (0-0.50)
[2023-12-13 20:44] VITALS: BP 149/81; PULSE 63; RESP 12; O2SAT 98
== END 2023-12-13 20:48 | disposition home or self-care (01) ==
LOC: ER 13:34
DX: R07.89 Other chest pain (principal); R06.02 Shortness of breath; I10 Essential (primary) hypertension; R42 Dizziness and giddiness; Z88.1 Allergy status to other antibiotic agents; Z88.5 Allergy status to narcotic agent; Z79.899 Other long term (current) drug therapy; Z90.49 Acquired absence of other specified parts of digestive tract; Z90.710 Acquired absence of both cervix and uterus
CPT/HCPCS: 36415; 71045; 76700; 80053; 83690; 83735; 83880; 84145; 84484; 85025; 85379; 85651; 86140; 93005; 93306; 99285